=== PATIENT | male | born 1955 | race Caucasian/White ===

== ENCOUNTER 2021-09-08 12:48 | Outpatient (REF) | payer OTHER, SELFPAY ==
[2021-09-08 13:01] LABS: MANUAL DIFF FLAG NO
[2021-09-08 14:04] LABS: Basophils Absolute Auto 0.1 X10*3/uL (0.0-0.2); Basophils Percent Auto 0.7 % (0-2); Eosinophils Absolute Auto 0.2 X10*3/uL (0.0-0.4); Eosinophils Percent Auto 2.4 % (0-4); Hematocrit 38.7 % (42.0-52.0); Hemoglobin 11.9 g/dl (14.0-18.0); Imm Gran Abs Auto 0.02 X10*3/uL (0.00-0.03); Imm Gran Pct Auto 0.3 % (0.0-0.4); Lymphocytes Absolute Auto 1.6 X10*3/uL (1.2-4.9); Mean Corpuscular HGB Conc 30.7 g/dl (31.0-36.0); Mean Corpuscular Volume 78.2 fL (80.0-98.0); Mean Platelet Volume 10.4 fL (9.4-12.4); Monocytes Absolute Auto 0.8 X10*3/uL (0.1-1.2); Monocytes Percent Auto 10.8 % (2-11); Neutrophils Absolute Auto 4.5 x10*3/uL (2.0-8.3); Neutrophils Percent Auto 62.8 % (45-73); Platelet Count 275 X10*3/uL (160-400); Red Blood Count 4.95 X10*6/uL (4.60-5.80); Red Cell Distribution Width 16.9 % (11.0-16.0); White Blood Count 7.1 X10*3/uL (4.8-10.8)
[2021-09-08 14:33] LABS: Alanine Aminotransferase 17 U/L (0-40); Albumin Level 4.4 g/dL (3.5-5.0); Alkaline Phosphatase 60 U/L (39-117); Anion Gap 14 (12-20); Aspartate Amino Transferase 24 U/L (5-37); Bilirubin Total 0.7 mg/dL (0.0-1.0); Blood Urea Nitrogen 20 mg/dL (9-16); Calcium 9.4 mg/dL (8.4-10.2); Carbon Dioxide 28 mmol/L (22-29); Chloride 102 mmol/L (96-108); Estimated Glomerular Filt Rate > 60; Glucose Random 97 mg/dL (60-115); Potassium 5.3 mmol/L (3.3-5.1); Sodium 139 mmol/L (135-145); Total Protein 7.4 g/dL (6.5-8.0)
== END 2021-09-08 12:49 | disposition home or self-care (01) ==
LOC: HO.LAB 12:48
PROVIDERS: PCP Family Medicine; Visit Provider Family Medicine
DX: D72.819 Decreased white blood cell count, unspecified (principal); R53.81 Other malaise
CPT/HCPCS: 36415; 80053; 85025

== ENCOUNTER 2021-09-12 09:44 | Outpatient (REF) | payer OTHER, SELFPAY ==
[2021-09-12 10:02] LABS: MANUAL DIFF FLAG NO
[2021-09-12 10:13] LABS: Basophils Percent Auto 0.8 % (0-2); Eosinophils Absolute Auto 0.1 X10*3/uL (0.0-0.4); Eosinophils Percent Auto 2.4 % (0-4); Hematocrit 37.3 % (42.0-52.0); Hemoglobin 11.4 g/dl (14.0-18.0); Imm Gran Abs Auto 0.01 X10*3/uL (0.00-0.03); Imm Gran Pct Auto 0.3 % (0.0-0.4); Lymphocytes Absolute Auto 1.3 X10*3/uL (1.2-4.9); Lymphocytes Percent Auto 33.4 % (20-40); Mean Corpuscular HGB Conc 30.6 g/dl (31.0-36.0); Mean Corpuscular Hemoglobin 23.9 pg (27.0-33.0); Mean Corpuscular Volume 78.2 fL (80.0-98.0); Mean Platelet Volume 9.9 fL (9.4-12.4); Monocytes Absolute Auto 0.4 X10*3/uL (0.1-1.2); Monocytes Percent Auto 11.6 % (2-11); Neutrophils Percent Auto 51.5 % (45-73); Platelet Count 230 X10*3/uL (160-400); Red Blood Count 4.77 X10*6/uL (4.60-5.80); Red Cell Distribution Width 16.7 % (11.0-16.0); White Blood Count 3.8 X10*3/uL (4.8-10.8)
[2021-09-12 10:36] LABS: Iron 36 mcg/dL (45-160); Percent Iron Saturation 8 % (15-50); Total Iron Binding Capacity 442 mcg/dL (228-428); Unsaturated Iron Binding 406 ug/dL
[2021-09-12 10:56] LABS: Ferritin 7 ng/mL (20-250)
[2021-09-12 11:15] LABS: Folate 17.9 ng/mL (> or = 4.0); Vitamin B12 620 pg/mL (200-900)
== END 2021-09-12 09:45 | disposition home or self-care (01) ==
LOC: HO.LAB 09:44
PROVIDERS: PCP Family Medicine; Visit Provider Family Medicine
DX: D64.9 Anemia, unspecified (principal)
CPT/HCPCS: 36415; 82607; 82728; 82746; 83540; 85025

== ENCOUNTER 2022-07-19 08:02 | Outpatient (REF) | payer OTHER, SELFPAY ==
[2022-07-19 08:17] LABS: MANUAL DIFF FLAG NO
[2022-07-19 08:35] LABS: Basophils Percent Auto 0.8 % (0-2); Eosinophils Absolute Auto 0.1 X10*3/uL (0.0-0.4); Eosinophils Percent Auto 1.7 % (0-4); Hematocrit 44.7 % (42.0-52.0); Imm Gran Abs Auto 0.01 X10*3/uL (0.00-0.03); Imm Gran Pct Auto 0.2 % (0.0-0.4); Lymphocytes Absolute Auto 1.3 X10*3/uL (1.2-4.9); Lymphocytes Percent Auto 27.8 % (20-40); Mean Corpuscular HGB Conc 33.6 g/dl (31.0-36.0); Mean Corpuscular Hemoglobin 32.5 pg (27.0-33.0); Mean Corpuscular Volume 96.8 fL (80.0-98.0); Mean Platelet Volume 9.8 fL (9.4-12.4); Monocytes Absolute Auto 0.6 X10*3/uL (0.1-1.2); Monocytes Percent Auto 11.6 % (2-11); Neutrophils Absolute Auto 2.8 x10*3/uL (2.0-8.3); Neutrophils Percent Auto 57.9 % (45-73); Platelet Count 180 X10*3/uL (160-400); Red Blood Count 4.62 X10*6/uL (4.60-5.80); Red Cell Distribution Width 13.2 % (11.0-16.0); White Blood Count 4.8 X10*3/uL (4.8-10.8)
[2022-07-19 09:00] LABS: Alanine Aminotransferase 20 U/L (0-40); Albumin Level 4.2 g/dL (3.5-5.0); Alkaline Phosphatase 48 U/L (39-117); Anion Gap 13 (12-20); Aspartate Amino Transferase 26 U/L (5-37); Bilirubin Total 0.9 mg/dL (0.0-1.0); Blood Urea Nitrogen 16 mg/dL (9-16); Calcium 9.3 mg/dL (8.4-10.2); Carbon Dioxide 30 mmol/L (22-29); Chloride 102 mmol/L (96-108); Estimated Glomerular Filt Rate > 60; Glucose Random 95 mg/dL (60-115); Iron 124 mcg/dL (45-160); Percent Iron Saturation 36 % (15-50); Potassium 4.9 mmol/L (3.3-5.1); Sodium 140 mmol/L (135-145); Total Iron Binding Capacity 340 mcg/dL (228-428); Total Protein 6.8 g/dL (6.5-8.0); Unsaturated Iron Binding 216 ug/dL
[2022-07-19 09:25] LABS: Prostate Specific Antigen 0.36 ng/mL (<0.05-4.0); Thyroid Stimulating Hormone 1.61 uIU/mL (0.32-4.0)
== END 2022-07-19 08:03 | disposition home or self-care (01) ==
LOC: HO.LAB 08:02
PROVIDERS: PCP Family Medicine; Visit Provider Family Medicine
DX: Z12.5 Encounter for screening for malignant neoplasm of prostate (principal); D50.9 Iron deficiency anemia, unspecified
CPT/HCPCS: 36415; 80053; 83540; 84153; 84443; 85025

== ENCOUNTER 2023-08-30 10:31 | Outpatient (REF) | payer MEDICARE, OTHER, SELFPAY ==
[2023-08-30 13:25] LABS: MANUAL DIFF FLAG NO
[2023-08-30 13:45] LABS: Basophils Percent Auto 0.1 % (0-2); Eosinophils Percent Auto 0.2 % (0-4); Hematocrit 45.7 % (42.0-52.0); Hemoglobin 15.6 g/dl (14.0-18.0); Imm Gran Abs Auto 0.05 X10*3/uL (0.00-0.03); Imm Gran Pct Auto 0.5 % (0.0-0.4); Lymphocytes Absolute Auto 0.8 X10*3/uL (1.2-4.9); Lymphocytes Percent Auto 8.7 % (20-40); Mean Corpuscular HGB Conc 34.1 g/dl (31.0-36.0); Mean Corpuscular Hemoglobin 32.2 pg (27.0-33.0); Mean Corpuscular Volume 94.4 fL (80.0-98.0); Mean Platelet Volume 10.4 fL (9.4-12.4); Monocytes Absolute Auto 0.9 X10*3/uL (0.1-1.2); Monocytes Percent Auto 9.2 % (2-11); Neutrophils Absolute Auto 7.5 x10*3/uL (2.0-8.3); Neutrophils Percent Auto 81.3 % (45-73); Platelet Count 193 X10*3/uL (160-400); Red Blood Count 4.84 X10*6/uL (4.60-5.80); Red Cell Distribution Width 12.7 % (11.0-16.0); White Blood Count 9.3 X10*3/uL (4.8-10.8)
[2023-08-30 14:03] LABS: Iron 159 mcg/dL (45-160); Percent Iron Saturation 54 % (15-50); Total Iron Binding Capacity 293 mcg/dL (228-428); Unsaturated Iron Binding 134 ug/dL
== END 2023-08-30 10:32 | disposition home or self-care (01) ==
LOC: HO.10HDL 10:31
PROVIDERS: Visit Provider Family Medicine
DX: D50.8 Other iron deficiency anemias (principal)
CPT/HCPCS: 36415; 83540; 85025

== ENCOUNTER 2024-06-03 09:10 | Outpatient (AMB) | payer MEDICARE, OTHER, SELFPAY ==
--- NOTE | 2024-06-03 09:14 | MHC.OFFVIS ---
Vital Signs 06/03/24 09:15 Height 5 ft 6 in Weight 255 lb BMI 41.2 BP 139/71 Blood Pressure Location Lt brachial Position Sitting Respiration 14 Pulse 63 Pulse Source Pulse Oximeter Pulse Oximetry (%) 99 Oxygen Delivery Method Room Air Intake Visit Reasons: Bilateral shoulder pain- PRP Allergies No Known Allergies Allergy (Verified 06/03/24 09:16) Medication List - Last Reconciled 06/03/24 by Marisol Santana LPN acetaminophen (Tylenol Extra Strength) 1,000 mg PO Q6H PRN naproxen sodium (Aleve) 220 mg PO BID PRN HPI HPI Bilateral shoulder pain- PRP: Details: 68-year-old male who presents to the office to discuss bilateral shoulder PRP injections. Patient has a long standing history of shoulder issues and rotator cuff dysfunction over the last 25 to 30 years. He used to work as a chronic care nurse and had overuse injury to his right rotator cuff many years ago, for which he underwent rotator cuff surgery roughly 25 years ago. Since then, he has been managing this issue conservatively with the physical therapy. Recently, he started experiencing increasing pain after game of pickleball. Since then, he started going back for physical therapy and 3 rounds of corticosteroid injections at [facility], which were initially helpful, but the third injection did not seem provided any relief. He also seems to have aggravated his pain by engaging in some excessive weightlifting. At this time, his pain is rated as 5 to 7 out of 10 and is worst in the morning when he first wakes up. Movements make it worse and cold helps with the pain. He is unable to function normally. The pain localizes over the right and the left shoulder as well as across his upper back area. Currently, he is taking two Aleve and one of Tylenol as needed. He had received cortisone shots at [facility] to both shoulders about 3 months ago. He denies any numbness in the fingers or back. He has never received physical therapy for the neck. [facility] Medical History (Updated 06/03/24 @ 09:43 by Constantine Jones MD) Morbid obesity Review of Systems Const All systems reviewed & are unremarkable except as noted in HPI and below Physical Exam Vital Signs: Last Vital Signs Pulse 63 06/03/24 09:15 Resp 14 06/03/24 09:15 BP 139/71 06/03/24 09:15 Pulse Ox 99 06/03/24 09:15 Oxygen Delivery Method Room Air 06/03/24 09:15 BMI result Body Mass Index 41.2 General: Appears afebrile. Alert and oriented. Mood and affect appropriate. Follows and participates in conversation appropriately. Respiratory effort is unlabored. Able to transition from sit to stand unassisted. Shoulder range of motion is preserved, but painful above the level of the head. Flexion reproduces pain along the lateral aspect of the shoulder. Palpation of the right bicipital tendon does not reproduce tenderness. Results Reviewed Results Reviewed: Exam: MR Shoulder - Right [facility] Clinical History: Biceps pain status post injury. History of rotator cuff repair 2009. Technique: MRI of the right shoulder was performed without intravenous contrast. Comparison: None. Findings: Postsurgical change at the AC joint Supraspinatus and infraspinatus tendons are intact. Teres minor tendon is intact. Subscapularis tendon is intact. Long head of the biceps tendon is either torn and retracted or has undergone previous tenotomy or tenodesis. Truncated superior labrum related to the aforementioned biceps. Intermediate T2 signal within a thickened inferior glenohumeral ligament. Mild glenohumeral osteoarthritis with small osteophytes. IMPRESSION: No evidence of rotator cuff tear. Long head of the biceps tendon is either torn and retracted or has undergone previous tenotomy or tenodesis. Correlate clinically. Truncated superior labrum likely related to biceps pathology. Intermediate T2 signal within a thickened inferior glenohumeral ligament. Finding can be seen with synovitis and adhesive capsulitis. Mild glenohumeral osteoarthritis with small osteophytes. Exam: MR Shoulder - Left Room Description: [facility] 1.5 Clinical History: Lateral shoulder pain. Technique: MRI of the left shoulder was performed without intravenous contrast. Comparison: None. Findings: Mild acromioclavicular osteoarthritis Supraspinatus and infraspinatus tendinopathy. Small, low and intermediate grade partial articular and intrasubstance tears within footprint fibers of the supraspinatus tendon. Teres minor tendon is intact. Subscapularis tendon is intact with mild distal subscapularis tendinopathy Partial tearing and tendinopathy within the long head of the biceps tendon IMPRESSION: Supraspinatus, infraspinatus and subscapularis tendinopathy. Superimposed partial supraspinatus tears are outlined above Partial tearing and tendinopathy within the long head of the biceps tendon Assessment & Plan Assessment & Plan (1) Cervical radiculopathy: Code(s): M54.12 - Radiculopathy, cervical region Category: Medical (2) Bilateral rotator cuff dysfunction: Code(s): M67.911 - Unspecified disorder of synovium and tendon, right shoulder; M67.912 - Unspecified disorder of synovium and tendon, left shoulder Category: Medical Plan We will schedule for a right shoulder rotator cuff PRP injection. Counseled him to avoid Aleve 2 weeks before prior to the injection and 2 weeks after the injection. Discussed the risks and benefits of the procedure with the patient in detail. All questions were answered. The patient is on board with the plan. Also provided the patient with a script for physical therapy for cervical radicular symptoms radiating into his upper back and shoulders. Scribed for Dr. Jones by Pauline Thomas medical laboratory technical officer, on 06/03/2024. I, Dr. Jones, have personally reviewed and agree with the information entered by the scribe. Orders: Orders PT Evaluation and Treatment Today M54.12 - Radiculopathy, cervical region Coding Level of Care Code New Pt Level 4 (83791) Diagnoses Cervical radiculopathy M54.12 Bilateral rotator cuff dysfunction M67.911; M67.912
[2024-06-03 09:15] VITALS: BP 139/71; PULSE 63; RESP 14; O2SAT 99; BMI 41.2
== END 2024-06-03 10:49 | disposition home or self-care (01) ==
PROVIDERS: PCP Family Medicine; Visit Provider Internal Medicine
DX: M54.12 Radiculopathy, cervical region (principal); M67.911 Unspecified disorder of synovium and tendon, right shoulder; M67.912 Unspecified disorder of synovium and tendon, left shoulder
CPT/HCPCS: 99204

== ENCOUNTER → 2024-06-03 09:10 | Outpatient (BNVA) | payer MEDICARE, OTHER, SELFPAY | PROVIDERS: PCP Family Medicine; Visit Provider Internal Medicine | DX: M67.911 Unspecified disorder of synovium and tendon, right shoulder (principal); M67.912 Unspecified disorder of synovium and tendon, left shoulder; M54.12 Radiculopathy, cervical region | CPT/HCPCS: 99202 ==

== ENCOUNTER 2024-06-11 06:09 | Outpatient (REF) | payer MEDICARE, OTHER, SELFPAY | END 2024-06-11 06:10 | disposition home or self-care (01) | LOC: CF 06:09 | PROVIDERS: Visit Provider Internal Medicine | DX: Z13.89 Encounter for screening for other disorder (principal) ==

== ENCOUNTER 2024-06-11 08:12 | Outpatient (AMB) | payer SELFPAY ==
[2024-06-11 08:40] VITALS: BP 123/70; PULSE 61; RESP 17; O2SAT 100
--- NOTE | 2024-06-11 10:03 | MHC.OFFVIS ---
Vital Signs 06/11/24 08:40 06/11/24 10:04 BP 123/70 167/93 H Blood Pressure Location Lt brachial Lt brachial Position Sitting Sitting Respiration 17 16 Pulse 61 52 Pulse Source Pulse Oximeter Pulse Oximeter Pulse Oximetry (%) 100 99 Oxygen Delivery Method Room Air Room Air Comment Pre-op Post-op Intake Visit Reasons: BILATERAL rotator cuff PRP Allergies No Known Allergies Allergy (Verified 06/03/24 09:16) HPI HPI BILATERAL rotator cuff PRP: Details: Patient presents for scheduled procedure. Denies any recent cough, cold, infection, fever or other significant changes in medical history since last office visit. [facility] Medical History (Updated 06/03/24 @ 09:43 by Constantine Jones MD) Morbid obesity Physical Exam Vital Signs: Last Vital Signs Pulse 52 06/11/24 10:04 Resp 16 06/11/24 10:04 BP 167/93 H 06/11/24 10:04 Pulse Ox 99 06/11/24 10:04 Oxygen Delivery Method Room Air 06/11/24 10:04 Office Procedures Platelet Rich Plasma Injection PRP Joint Injection After informed written consent was obtained, pre-procedure oxygen saturation, heart rate, and blood pressure were recorded. An 18 gauge butterfly needle was used to obtain 102 mL of whole blood from the right antecubital fossa in 2 syringes, prefilled with 9 mL anticoagulant citrate dextrose solution for 60 mL total in each syringe. The 60 mL mixtures were counter balanced to within 1 g and spun at 3500 rpm for 11 minutes. Platelet poor plasma was then drawn using a bench top press model. 6 mL of slightly leukocyte rich PRP was isolated from each of the two mixtures in to 2 syringes. The PRP was injected into each of the 2 shoulders, targeting the supraspinatus tendon, infraspinatus tendon and the subacromial region. Images of the ultrasound guided injections were saved to the patient's permanent record. Primary Site: right shoulder Secondary Site: left shoulder Prep: site was prepped using sterile technique Approach Used: posterolateral (under US guidance) Procedure: The patient tolerated the procedure well XCELL Platelet Plasma - 0232T 120 mL All charges added?: Procedure code (CPT) selection complete Assessment & Plan Assessment & Plan (1) Bilateral rotator cuff dysfunction: Code(s): M67.911 - Unspecified disorder of synovium and tendon, right shoulder; M67.912 - Unspecified disorder of synovium and tendon, left shoulder Category: Medical Plan Patient is status post bilateral rotator cuff PRP injections under ultrasound guidance using 120 mL kits/volume. Patient tolerated procedure well and was discharged home in stable condition with discharge instructions. All questions were answered. Follow-up in 2 months to assess response. Orders: Orders AMB Platelet Rich Plasma (PRP) Injection Today Louann West APRN, KOSHER BUTCHER M67.911 - Unspecified disorder of synovium and tendon, right shoulder, M67.912 - Unspecified disorder of synovium and tendon, left shoulder US guide needle placement Today Louann West APRN, KOSHER BUTCHER M67.911 - Unspecified disorder of synovium and tendon, right shoulder, M67.912 - Unspecified disorder of synovium and tendon, left shoulder Medications: New tramadol 50 mg PO BID PRN 20 tabs 0RF pain Constantine Jones MD Coding Level of Care Code Procedure Only Diagnoses Bilateral rotator cuff dysfunction M67.911; M67.912 CPT Codes XCELL Kit 120mL ([id number])
[2024-06-11 10:04] VITALS: BP 167/93; PULSE 52; RESP 16; O2SAT 99
== END 2024-06-11 09:38 | disposition home or self-care (01) ==
PROVIDERS: PCP Family Medicine; Visit Provider Internal Medicine
DX: M67.911 Unspecified disorder of synovium and tendon, right shoulder (principal); M67.912 Unspecified disorder of synovium and tendon, left shoulder
CPT/HCPCS: 0232T

== ENCOUNTER 2024-08-21 08:54 | Outpatient (AMB) | payer MEDICARE, OTHER, SELFPAY ==
--- NOTE | 2024-08-21 09:02 | MHC.OFFVIS ---
Vital Signs 08/21/24 09:03 Height 5 ft 6 in Weight 263 lb BMI 42.4 BP 140/65 H Blood Pressure Location Lt brachial Position Sitting Respiration 16 Pulse 69 Pulse Source Pulse Oximeter Pulse Oximetry (%) 97 Oxygen Delivery Method Room Air Intake Visit Reasons: s/p PRP right rotator cuff Allergies No Known Allergies Allergy (Verified 08/21/24 09:04) Medication List - Last Reconciled 08/21/24 by Marisol Santana LPN acetaminophen (Tylenol Extra Strength) 1,000 mg PO Q6H PRN naproxen sodium (Aleve) 220 mg PO BID PRN tramadol 50 mg PO BID PRN HPI HPI s/p PRP right rotator cuff: Details: 68-year-old male who presents today to the office for status post right rotator cuff PRP injection. The patient reports mild relief following the procedure. He states that his pain has been gradually coming back and worsening for the past 30 days. His right side is worse and bothersome compared to the left side. He deferred getting additional steroids or drug injections for pain relief. He noticed losing strength in his hands while trying to squeeze the aerosol bottle. He denies dropping things from his hands. He also has some neck and shoulder pain.?His pain is worse in the morning and has difficulty sleeping at night. He is currently using [employer] insurance and will change his insurance to [employer] at the end of the month. Past procedures 06/11/24: PRP Joint Injection: Mild relief. [facility] Medical History (Updated 06/03/24 @ 09:43 by Constantine Jones MD) Morbid obesity Review of Systems Const All systems reviewed & are unremarkable except as noted in HPI and below Physical Exam Vital Signs: Last Vital Signs Pulse 69 08/21/24 09:03 Resp 16 08/21/24 09:03 BP 140/65 H 08/21/24 09:03 Pulse Ox 97 08/21/24 09:03 Oxygen Delivery Method Room Air 08/21/24 09:03 BMI result Body Mass Index 42.4 General: Appears afebrile. Alert and oriented. Mood and affect appropriate. Follows and participates in conversation appropriately. Respiratory effort is unlabored. Able to transition from sit to stand unassisted. Ambulates with bilaterally normal heel strike and toe off. Right shoulder ROM severely limited. Painful arc. Results Reviewed Results Reviewed: No imaging is available for review. Assessment & Plan Assessment & Plan (1) Bilateral rotator cuff dysfunction: Code(s): M67.911 - Unspecified disorder of synovium and tendon, right shoulder; M67.912 - Unspecified disorder of synovium and tendon, left shoulder Category: Medical Plan Discussed repeating PRP injections vs. cortisone injections vs. temporary peripheral nerve stimulator as possible treatment options. We will proceed with right suprascapular peripheral nerve stimulator for intractable right shoulder pain not responsive to PT and injection. He may consider a future PRP injection to the right biceps along the tendon. For the left rotator cuff we will repeat PRP joint injection given good response to the last injection. We will initiate the PA for the peripheral nerve stimulator with [employer] which is his insurance starting September 04. Discussed the risks and benefits of the procedure with the patient in detail. All questions were answered. The patient is on board with the plan. Justification for interventional therapy: ? Patient with average pain > 6/10 ? Patient has exhausted conservative therapy ? Patient unable to tolerate physical therapy due to pain. . Patient has a good understanding of their pain condition and has appropriate mental and social support Scribed for Dr. Jones by Chacorta Pierson, medical administrator, on 08/21/2024. I, Dr. Jones, have personally reviewed and agree with the information entered by the scribe. Medications: New celecoxib (Celebrex) 200 mg PO BID 60 caps 0RF Coding Level of Care Code Est Pt Level 4 (54879) Diagnoses Bilateral rotator cuff dysfunction M67.911; M67.912
[2024-08-21 09:03] VITALS: BP 140/65; PULSE 69; RESP 16; O2SAT 97; BMI 42.4
== END 2024-08-21 09:29 | disposition home or self-care (01) ==
PROVIDERS: PCP Family Medicine; Visit Provider Internal Medicine
DX: M67.911 Unspecified disorder of synovium and tendon, right shoulder (principal); M67.912 Unspecified disorder of synovium and tendon, left shoulder
CPT/HCPCS: 99214

== ENCOUNTER → 2024-08-21 08:54 | Outpatient (BNVA) | payer MEDICARE, OTHER, SELFPAY | PROVIDERS: PCP Family Medicine; Visit Provider Internal Medicine | DX: M65.911 Unspecified synovitis and tenosynovitis, right shoulder (principal); M65.912 Unspecified synovitis and tenosynovitis, left shoulder | CPT/HCPCS: 99212 ==

== ENCOUNTER 2024-09-03 06:09 | Outpatient (REF) | payer MEDICARE, OTHER, SELFPAY | END 2024-09-03 06:10 | disposition home or self-care (01) | LOC: CF 06:09 | PROVIDERS: Visit Provider Internal Medicine | DX: Z13.89 Encounter for screening for other disorder (principal) ==

== ENCOUNTER 2024-09-03 09:05 | Outpatient (AMB) | payer MEDICARE, OTHER, SELFPAY ==
--- NOTE | 2024-09-03 09:14 | A.OFFVIS_ITS ---
Vital Signs 09/03/24 09:15 09/03/24 10:17 BP 136/71 135/79 Blood Pressure Location Rt brachial Rt brachial Position Sitting Sitting Pulse 60 58 Pulse Source Pulse Oximeter Pulse Oximeter Pulse Oximetry (%) 97 99 Oxygen Delivery Method Room Air Room Air Intake Visit Reasons: PRP left rotator cuff Allergies No Known Allergies Allergy (Verified 08/21/24 09:04) [facility] Medical History (Updated 06/03/24 @ 09:43 by Constantine Jones MD) Morbid obesity Physical Exam Vital Signs: Last Vital Signs Pulse 58 09/03/24 10:17 BP 135/79 09/03/24 10:17 Pulse Ox 99 09/03/24 10:17 Oxygen Delivery Method Room Air 09/03/24 10:17 Office Procedures Platelet Rich Plasma Injection PRP Joint Injection PRP Joint Injection After informed written consent was obtained, pre-procedure oxygen saturation, heart rate, and blood pressure were recorded. An 18 gauge butterfly needle was used to obtain 51 mL of whole blood from the right antecubital fossa PNS syringe prefilled with 9 mL anticoagulant citrate dextrose solution for 60 mL total. The 60 mL mixture was counter balanced to within 1 g and spun at 3500 rpm for 11 minutes. Platelet poor plasma was then drawn using a bench top press model. 6-7 mL of slightly leukocyte rich PRP was isolated into one 10 mL syringe. 2-3 mL of the PRP was injected around the long head of the left biceps tendon and 3-4 mL was deposited in the subacromial region along the supraspinatus tendon. Images of the ultrasound guided injections were saved to the patient's permanent record. Primary Site: left shoulder Prep: site was prepped using sterile technique Approach Used: other (Ultrasound-guided) Procedure: The patient tolerated the procedure well XCELL Platelet Plasma - 0232T 60 mL All charges added?: Procedure code (CPT) selection complete Assessment & Plan Assessment & Plan (1) Bilateral rotator cuff dysfunction: Code(s): M67.911 - Unspecified disorder of synovium and tendon, right shoulder; M67.912 - Unspecified disorder of synovium and tendon, left shoulder Category: Medical Plan Patient is status post left biceps tendon and supraspinatus tendon PRP injection under ultrasound guidance. Patient tolerated procedure well and was discharged home in stable condition with discharge instructions. All questions were answered. We will follow-up via telephone or in clinic to assess response to therapy. A follow-up appointment was made during today's visit. Orders: Orders AMB Platelet Rich Plasma (PRP) Injection Today M67.911 - Unspecified disorder of synovium and tendon, right shoulder, M67.912 - Unspecified disorder of synovium and tendon, left shoulder Coding Level of Care Code Procedure Only Diagnoses Bilateral rotator cuff dysfunction M67.911; M67.912 CPT Codes XCELL Kit 60mL ([id number])
[2024-09-03 09:15] VITALS: BP 136/71; PULSE 60; O2SAT 97
[2024-09-03 10:17] VITALS: BP 135/79; PULSE 58; O2SAT 99
== END 2024-09-03 10:19 | disposition home or self-care (01) ==
LOC: HO.PMCPRC 09:05
PROVIDERS: PCP Family Medicine; Visit Provider Internal Medicine
DX: M67.911 Unspecified disorder of synovium and tendon, right shoulder (principal); M67.912 Unspecified disorder of synovium and tendon, left shoulder
CPT/HCPCS: 0232T

== ENCOUNTER 2024-09-24 07:59 | Outpatient (REF) | payer MEDICARE, SELFPAY | END 2024-09-24 08:00 | disposition home or self-care (01) | LOC: CF 07:59 | PROVIDERS: Visit Provider Internal Medicine | DX: M67.911 Unspecified disorder of synovium and tendon, right shoulder (principal); M67.912 Unspecified disorder of synovium and tendon, left shoulder; M25.511 Pain in right shoulder; M25.512 Pain in left shoulder; G89.29 Other chronic pain | CPT/HCPCS: 64555; C1778; J2003 ==

== ENCOUNTER 2024-09-24 09:11 | Outpatient (AMB) | payer MEDICARE, SELFPAY ==
[2024-09-24 09:22] VITALS: BP 119/67; PULSE 58; O2SAT 98
--- NOTE | 2024-09-24 09:22 | MHC.OFFVIS ---
Vital Signs 09/24/24 09:22 09/24/24 10:13 BP 119/67 Blood Pressure Location Lt brachial Position Sitting Pulse 58 58 Pulse Source Pulse Oximeter Pulse Oximeter Pulse Oximetry (%) 98 98 Oxygen Delivery Method Room Air Room Air Intake Visit Reasons: right suprascapular Sprint Allergies No Known Allergies Allergy (Verified 08/21/24 09:04) HPI HPI right suprascapular Sprint: Details: Patient presents for scheduled procedure. Denies any recent cough, cold, infection, fever or other significant changes in medical history since last office visit. [facility] Medical History (Updated 09/24/24 @ 13:02 by Constantine Jones MD) Morbid obesity Physical Exam Vital Signs: Last Vital Signs Pulse 58 09/24/24 10:13 BP 119/67 09/24/24 09:22 Pulse Ox 98 09/24/24 10:13 Oxygen Delivery Method Room Air 09/24/24 10:13 Office Procedures Details: Peripheral Nerve Stimulation Temporary Lead Placement, Ultrasound-Guided, Suprascapular Nerve, Right ? After the risks, benefits and alternatives were discussed with the patient and informed consent was obtained, patient was placed in the sitting position and padded to foster comfort. Appropriate skin and bony landmarks were identified using ultrasound, including the right suprascapular notch. The skin overlying the needle entry site was prepped and draped in sterile fashion. After identifying and marking the intended target along the course of the suprascapular nerve, the skin around the planned entry point and the subcutaneous tissues were injected with local anesthetic. An introducer needle and stimulating probe were assembled, inserted and advanced along the intended course of the suprascapular nerve, taking care to maintain the proper depth of insertion as the introducer was advanced under ultrasound guidance. Bony contact was achieved with the scapula and maintained throughout. The introducer needle was delivered to a location in proximity to the nerve. Multiple stimulation parameters were used to deliver stimulation to the suprascapular nerve in concert with stimulating at multiple positions around the nerve. Nerve target acquisition was confirmed noting generation of sensory and mild motor effects (paresthesia, muscle tension, etc) in the shoulder and proximal arm; corresponding to the distribution of the suprascapular nerve. Various electrical parameter combinations were tested, and the lead location was adjusted (physically relocated under image guidance) until the patient indicated shoulder paresthesia and tension overlapping the distribution of the patient?s typical region of pain. The stimulating probe was removed from the introducer and a percutaneous lead was guided through the needle and delivered to a location in similar proximity to the nerve. Final location was verified with electrical stimulation and documented. The introducer needle was removed, and the exposed end of the percutaneous lead was attached to an external stimulator unit. Various electrical parameter combinations were again tested until the patient indicated paresthesia and muscle tension overlapping the distribution of the patient?s typical region of pain. After confirming that lead impedance was in the normal range, the external unit was detached, the needle was removed, and the lead was anchored at the skin. The needle entry site was occluded with dermabond. The lead was threaded into the connector block and electrical continuity and desired patient response was confirmed. The connector block was attached to the external stimulator unit. The site was covered with a sterile occlusive dressing.? A final image was taken to document final placement. The patient was observed for stability of vital signs and comfort. Sprint PNS Device: Sprint PNS Device [id number] Percutaneous Peripheral Neuroelectrode Procedure: 25807 - Percutaneous Peripheral Neuroelectrode Procedure code (CPT) selection complete Office Meds lidocaine HCl 10 mg/mL (1 %) injection solution Performing Provider: Louann West APRN, [facility] Performing Location: [facility] Administered by: Marisol Santana LPN on 09/24/24 09:51 Dose Route Admin Location Dispensed Lot Number Expiration Date NDC Criminalist Technician 5 mL subcut 5 mL Assessment & Plan Assessment & Plan (1) Bilateral rotator cuff dysfunction: Code(s): M67.911 - Unspecified disorder of synovium and tendon, right shoulder; M67.912 - Unspecified disorder of synovium and tendon, left shoulder Category: Medical (2) Chronic shoulder pain: Code(s): M25.519 - Pain in unspecified shoulder; G89.29 - Other chronic pain Category: Medical Plan Patient is status post temporary right suprascapular nerve stimulator placement. Patient tolerated procedure well and was discharged home in stable condition with discharge instructions. All questions were answered. We will follow-up via telephone or in clinic to assess response to therapy. A follow-up appointment was made during today's visit. Orders: Orders [place] guidance in treatment room Today M67.911 - Unspecified disorder of synovium and tendon, right shoulder, M67.912 - Unspecified disorder of synovium and tendon, left shoulder AMB Sprint PNS Today M67.911 - Unspecified disorder of synovium and tendon, right shoulder, M67.912 - Unspecified disorder of synovium and tendon, left shoulder Coding Level of Care Code Procedure Only Diagnoses Bilateral rotator cuff dysfunction M67.911; M67.912 Chronic shoulder pain M25.519; G89.29 CPT Codes Sprint PNS - Sprint PNS Device: Sprint PNS Device ([id number]) Sprint PNS - SPRINT: 62581 - Percutaneous Peripheral Neuroelectrode ([id number]) Implantable Device Implantable Device Implantable Devices Qty Criminalist Technician Implant Date Expiration Date Analgesic PENS system 1 [employer] 09/24/24 10/07/25
[2024-09-24 10:13] VITALS: PULSE 58; O2SAT 98
== END 2024-09-24 10:29 | disposition home or self-care (01) ==
LOC: HO.PMCPRC 09:11
PROVIDERS: PCP Family Medicine; Visit Provider Internal Medicine
DX: M67.911 Unspecified disorder of synovium and tendon, right shoulder (principal)
CPT/HCPCS: 64555

== ENCOUNTER 2024-09-28 08:52 | Outpatient (AMB) | payer MEDICARE, SELFPAY ==
--- NOTE | 2024-09-28 08:53 | A.OFFVIS_ITS ---
Vital Signs 09/28/24 08:54 Height 5 ft 6 in Weight 250 lb BMI 40.3 BP 122/67 Blood Pressure Location Lt brachial Position Sitting Respiration 15 Pulse 64 Pulse Source Pulse Oximeter Pulse Oximetry (%) 97 Oxygen Delivery Method Room Air Intake Visit Reasons: s/p right suprascapular Sprint Allergies No Known Allergies Allergy (Verified 09/28/24 08:56) Medication List - Last Reconciled 09/28/24 by Marisol Santana LPN acetaminophen (Tylenol Extra Strength) 1,000 mg PO Q6H PRN celecoxib (Celebrex) 200 mg PO BID naproxen sodium (Aleve) 220 mg PO BID PRN tramadol 50 mg PO BID PRN HPI HPI s/p right suprascapular Sprint: Details: 69-year-old male who presents today to the office for a status post right suprascapular sprint. He has about 80% relief on the left side following the PRP injection and 80% relief on the right side following the sprint placement. Past procedures 09/27/24: Peripheral Nerve Stimulation Temporary Lead Placement, Ultrasound- Guided, Suprascapular Nerve, Right: % relief. 09/03/24: Platelet Rich Plasma Injection: % relief. 06/11/24: PRP Joint Injection: Mild relief. [facility] Medical History (Updated 09/24/24 @ 13:02 by Constantine Jones MD) Morbid obesity Review of Systems Const All systems reviewed & are unremarkable except as noted in HPI and below Physical Exam Vital Signs: Last Vital Signs Pulse 64 09/28/24 08:54 Resp 15 09/28/24 08:54 BP 122/67 09/28/24 08:54 Pulse Ox 97 09/28/24 08:54 Oxygen Delivery Method Room Air 09/28/24 08:54 BMI result Body Mass Index 40.3 General: Appears afebrile. Alert and oriented. Mood and affect appropriate. Follows and participates in conversation appropriately. Respiratory effort is unlabored. Able to transition from sit to stand unassisted. Ambulates with bilaterally normal heel strike and toe off. Lead insertion site was clean, dry, and intact. Results Reviewed Results Reviewed: No imaging is available for review. Assessment & Plan Assessment & Plan (1) Chronic shoulder pain: Code(s): M25.519 - Pain in unspecified shoulder; G89.29 - Other chronic pain Category: Medical (2) Bilateral rotator cuff dysfunction: Code(s): M67.911 - Unspecified disorder of synovium and tendon, right shoulder; M67.912 - Unspecified disorder of synovium and tendon, left shoulder Category: Medical Plan He is very happy with the initial results. We will continue therapy as planned. He will be in [place] at the time of the lead removal. He will be in touch with [facility] team to arrange provider for lead removal. He expressed understanding and is in agreement with the plan. Scribed for Dr. Jones by Chacorta Pierson, senior medical transcriptionist, on 09/28/2024. I, Dr. Jones, have personally reviewed and agree with the information entered by the scribe. Coding Level of Care Code Est Pt Level 3 (13761) Diagnoses Chronic shoulder pain M25.519; G89.29 Bilateral rotator cuff dysfunction M67.911; M67.912
[2024-09-28 08:54] VITALS: BP 122/67; PULSE 64; RESP 15; O2SAT 97; BMI 40.3
== END 2024-09-28 09:33 | disposition home or self-care (01) ==
PROVIDERS: PCP Family Medicine; Visit Provider Internal Medicine
DX: M25.519 Pain in unspecified shoulder (principal); G89.29 Other chronic pain; M67.911 Unspecified disorder of synovium and tendon, right shoulder; M67.912 Unspecified disorder of synovium and tendon, left shoulder
CPT/HCPCS: 99024

== ENCOUNTER → 2024-09-28 08:52 | Outpatient (BNVA) | payer MEDICARE, SELFPAY | PROVIDERS: PCP Family Medicine; Visit Provider Internal Medicine | DX: M67.911 Unspecified disorder of synovium and tendon, right shoulder (principal); M67.912 Unspecified disorder of synovium and tendon, left shoulder; M25.519 Pain in unspecified shoulder; G89.29 Other chronic pain | CPT/HCPCS: 99212 ==

== ENCOUNTER 2024-10-30 09:15 | Outpatient (AMB) | payer MEDICARE, SELFPAY ==
--- NOTE | 2024-10-30 09:28 | MHC.OFFVIS ---
Vital Signs 10/30/24 09:30 Height 5 ft 6 in Weight 250 lb BMI 40.3 BP 143/80 H Blood Pressure Location Lt brachial Position Sitting Respiration 15 Pulse 63 Pulse Source Pulse Oximeter Pulse Oximetry (%) 98 Oxygen Delivery Method Room Air Intake Visit Reasons: s/p PRP left rotator cuff Allergies No Known Allergies Allergy (Verified 10/30/24 09:31) Medication List - Last Reconciled 10/30/24 by Marisol Santana LPN acetaminophen (Tylenol Extra Strength) 1,000 mg PO Q6H PRN celecoxib (Celebrex) 200 mg PO BID naproxen sodium (Aleve) 220 mg PO BID PRN tramadol 50 mg PO BID PRN HPI HPI s/p PRP left rotator cuff: Details: 69-year-old male who presents today to the office for a status post left shoulder PRP injections. He has been feeling appropriate sensations from the device in his bilateral shoulder and neck region. He states that he titrated the device setting from 60 to 62, 64, 67, and then 69 and then weaned down to 60 on . He occasionally feels some soreness in the mid-neck region. He is able to sleep without any pain. He is traveling to [place]. He had difficulty reaching out to the [facility] team in [place] for lead removal that is scheduled in the first week of December 2024. He will reach out to [facility] on 11/02/24. Past procedures 09/27/24: Peripheral Nerve Stimulation Temporary Lead Placement, Ultrasound-Guided, Suprascapular Nerve, Right: % relief. 09/03/24: Platelet Rich Plasma Injection: % relief. 06/11/24: PRP Joint Injection: Mild relief. [facility] Medical History (Updated 09/24/24 @ 13:02 by Constantine Jones MD) Morbid obesity Review of Systems Const All systems reviewed & are unremarkable except as noted in HPI and below Physical Exam Vital Signs: Last Vital Signs Pulse 63 10/30/24 09:30 Resp 15 10/30/24 09:30 BP 143/80 H 10/30/24 09:30 Pulse Ox 98 10/30/24 09:30 Oxygen Delivery Method Room Air 10/30/24 09:30 BMI result Body Mass Index 40.3 General: Appears afebrile. Alert and oriented. Mood and affect appropriate. Follows and participates in conversation appropriately. Respiratory effort is unlabored. Able to transition from sit to stand unassisted. Ambulates with bilaterally normal heel strike and toe off. Results Reviewed Results Reviewed: No imaging is available for review. Assessment & Plan Assessment & Plan (1) Chronic shoulder pain: Code(s): M25.519 - Pain in unspecified shoulder; G89.29 - Other chronic pain Category: Medical Plan He will continue the temporary PNS therapy as directed. He is traveling to [place], so we will try to setup the lead removal in [place]. Scribed for Dr. Jones by Chacorta Pierson, medical technologist chemistry, on 10/30/2024. I, Dr. Jones, have personally reviewed and agree with the information entered by the scribe. Coding Level of Care Code Est Pt Level 3 (23269) Diagnoses Chronic shoulder pain M25.519; G89.29
[2024-10-30 09:30] VITALS: BP 143/80; PULSE 63; RESP 15; O2SAT 98; BMI 40.3
== END 2024-10-30 10:17 | disposition home or self-care (01) ==
PROVIDERS: PCP Family Medicine; Visit Provider Internal Medicine
DX: M25.519 Pain in unspecified shoulder (principal); G89.29 Other chronic pain
CPT/HCPCS: 99213

== ENCOUNTER → 2024-10-30 09:15 | Outpatient (BNVA) | payer MEDICARE, SELFPAY | PROVIDERS: PCP Family Medicine; Visit Provider Internal Medicine | DX: M25.512 Pain in left shoulder (principal); G89.29 Other chronic pain | CPT/HCPCS: 99212 ==

== ENCOUNTER 2025-03-22 11:39 | Outpatient (AMB) | payer MEDICARE, SELFPAY ==
--- NOTE | 2025-03-22 11:43 | A.OFFVIS_ITS ---
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 The issue originated from carrying an intoxicated individual, increasing stress on the patient's left shoulder. Previously administered treatments, notably PRP injections, offered significant symptomatic relief. Targeting of the biceps tendon successfully mitigated pain, evidenced by pain-free physical activities like playing pickleball. The absence of consistent NSAID usage and reliance on conservative management corroborates his treatment history, with remarkable symptomatic improvement noted pre-and post-exertion activities despite recent exacerbation. Pain Description - Onset and Timing: Pain reactivated after physical exertion. - Quality and Character: Notable discomfort in the left shoulder, primarily around the biceps tendon and supraspinatus tendon. - Primary Location: Left shoulder. - Radiation: No specific details provided. - Exacerbating Factors: Physical exertion, notably carrying weight on the shoulder. - Relieving Factors: Previous PRP therapy provided significant relief. - Interference: Activities such as carrying weight have increased discomfort while past activities like pickleball were pain-free after treatment. Physical Exam - Appears afebrile. - Alert and oriented. - Mood and affect appropriate. - Follows and participates in conversation appropriately. - Respiratory effort is unlabored. - Limited left shoulder ROM Pain Management - Affect: No mention of mood impact from pain. - Analgesia: PRP therapy previously effective with goal to re-administer. - Adverse Effects: No reported side effects from current/prior treatments. - Activities of Daily Living: Pain interfered during carrying tasks; goal to regain full, pain-free mobility. - Aberrant Drug Related Behaviors: No suspicious medication use reported. [facility] Medical History (Updated 09/24/24 @ 13:02 by Constantine Jones MD) Morbid obesity Physical Exam Vital Signs: Last Vital Signs Pulse 55 03/22/25 11:45 Resp 16 03/22/25 11:45 BP 135/77 03/22/25 11:45 Pulse Ox 99 03/22/25 11:45 Oxygen Delivery Method Room Air 03/22/25 11:45 BMI result Body Mass Index 40.5 Assessment & Plan Assessment & Plan (1) Chronic shoulder pain: Code(s): M25.519 - Pain in unspecified shoulder; G89.29 - Other chronic pain Category: Medical Plan Plan - Arrange for left-sided PRP injection targeting the biceps tendon and supraspinatus tendon as before due to previous efficacy. - Discussed procedure details, risks, and benefits based on prior effective pain management strategies. - Assure to monitor for complications, emphasizing patient understanding of follow-up care and manage lifestyle modifications to avoid exacerbating actions. Patient was informed and verbally consented to the use of an ambient scribe for clinic note documentation during this visit. Discussion Notes We reviewed the patient's previous successful response to PRP therapy, particularly targeting the left shoulder's biceps and supraspinatus tendons. I explained the procedure's risks, benefits, and goals to alleviate reactivated pain following recent exertion. The patient expressed an understanding of the intervention and expressed willingness to proceed with another session, given prior positive outcomes. Monitoring and adverse behavior evaluations regarding medication usage were reassured as part of post-treatment assessments. Patient Instructions - Schedule PRP injection for left shoulder targeting biceps tendon and supraspinatus tendon. - Avoid intensive shoulder activities or carrying heavy objects until post- procedural relief confirmation. - Follow-up with any unusual symptoms or exacerbation of pain. - Maintain regular follow-up visits and report any unforeseen side effects from treatment interventions. Coding Level of Care Code Est Pt Level 3 (64806) Diagnoses Chronic shoulder pain M25.519; G89.29
[2025-03-22 11:45] VITALS: BP 135/77; PULSE 55; RESP 16; O2SAT 99; BMI 40.5
--- OUTSIDE RECORDS SUMMARY | 2025-03-22 12:26 | XMS_ITS | Data Portability ---
Author Organization [place] [facility] Address [address] [address] Care Team Providers Care Statement Request Clerk Name Role Phone MESHA FUNES Primary Care Provider Assessment Encounter Date Assessment Date Assessment LastModified by Organization Details LastModified Time 11/13/2024 11/13/2024 Dylan Orellana MD patient 1. Mr. Morton is a very pleasant patient with PMH of BPH. Patient is presenting with RT shoulder pain. Patient states having a PNS on the RT shoulder on the 2023 back in [place]. Patient will f/u for a 1 month for lead pull. Onset of Pain Approximate Date: (Month/Year) - Current Pain Level: 2/10 Worst pain level: 10/10 2. Pain Generators/ Etiology Shoulder sub-acromial impingement 3. Previously trialed/Failed Meds: (drug name followed by E- Effective if Not Effective only list drug name) Tylenol - NSAID? s / steroids - Muscle relaxants - Antineuropathics (TCA, SNRI, antiepileptics) - Opioids - Topicals - Others/Naturals- 4. Physical Therapy : (Year/location/dur ation/benefit or no) (EX: 2016, neck, 8w, no benefit) - -Pt reports continuing to perform HEP which was previously learned from PT and/or physician direction for at least the past 6 weeks within the past 6 months. 5. Psychological comorbidities: (diagnosis/ seeing therapist or psychiatrist (Y/N)) - 6. Opioid risk screening - Personal/Family Hx of drug abuse (including prescriptions)?- Y/N - Alcohol use and/or BZDs?- Y/N - Oral morphine equivalent (OME) daily - -If >60 OMEs, Narcan discussed and/or prescribed? 7. Anticoagulants / Anti-platelets: (drug name/clearance to hold in past or obtained by us?) - 8. Injections/EMGs: (date/type/ % relief / duration of relief), (EMG date and positive findings) - 9. Spine/Major Joint Surgeries: -09/24/2024 - PNS RT Shoulder in [place]. 10. Patient has been treated with: (Y= yes, benefit Y or N) - Acupuncture: - Chiropractor: - Heat therapy: - Ice Therapy: - TENS: 11. RED FLAGS: (Y/N) Progressive neurologic deficits- Bowel and bladder function- Unexplained Weight loss- Prior cancer history- Trauma- Fevers / chills- Diabetic- Liver / Kidney Issues- 12. Labs: (ensure blood work within 1 yr reviewed for renal and liver function) -Pt states blood work has been performed within last 12 months and denies renal/liver dysfunction. 13. Imaging: (date/type) - - - PLAN: 1. New Medications this visit - CURRENT PAIN MEDS: - - - If Opiate medications were prescribed during this office visit the following applies: -The advantages and disadvantages of opioid therapy including but not limited to the risk of addiction, medication misuse, overdose, tolerance, respiratory depression and were discussed with the patient now and/or in the past. Alternatives such as NSAIDs, tylenol, therapy, ice, neuropathic medications, stretching and home exercise were discussed with the patient and the patient agreed to proceed and verbalized understanding. The [facility] opioid risk pamphlet was/has been previously provided to the patient. - [place] PDMP/[place]-Forsce was used in opioid decision making. Side effects of chronic opioid use such as constipation, urinary retention, pruritus, respiratory depression, sedation, dependence, addiction, tolerance, opioid induced hyperalgesia, osteopenia / fractures, hypogonadism and immune suppression were discussed in detail. Patient was advised to take the opioid medications as sparingly as possible. Also advised not to operate heavy machinery while under the influence of opioid medication. Patient acknowledges understanding of this. - An opioid agreement is on file. Random UDS will be done while patient is maintained on opioids. 2. PT ? prescribe none -Encouraged pt to continue home exercises that were learned via previous physician direction. The patient has been trying these exercise for more than 6 weeks. -Recommend walking forward and backward in waist-high water? t o improve balance, and to the core muscles of abdomen, and to increase flexibility and boosts cardiovascular fitness. - DME: No DME ordered at this time. 3. Psychological ? recommendations: none 4. Labs - obtain none 5. Imaging - Obtain: no diagnostic studies at this time - Reviewed available imaging prior to pt arrival - No tests were reviewed with pt during this appointment 6. Interventions ? schedule: none T/C: - - - 7. Referrals ? none 8. Records requested ? none 9. Follow up visit ? Patient 1 f/u for lead pull w/ Dr. Seals. 10. Additional Discussion ? Iván Seals MD We will continue to evaluate the patient's complex medical condition, namely chronic pain and its associated medical conditions, and manage the medical care services that serve as the continuing focal point for all needed health care services and/or with medical care services that are part of ongoing care related to the patient's complex pain condition. - The pathophysiology of the patient? s condition(s) was/were discussed. Conservative options were discussed -Patient agrees to recommendations and treatment course. They have agreed they will call the office with any questions, concerns, complaints, or problems. Risks, benefits, and alternatives were discussed with the patient. -Patient agrees to follow-up with their primary care provider and specialists as discussed Not available 11/13/2024 16:59:06 12/21/2024 12/21/2024 Dylan Orellana MD patient 1. Mr. Morton is a very pleasant patient with PMH of BPH. Patient is presenting with RT shoulder pain. Patient states having a PNS on the RT shoulder on the 2023 back in [place]. Pt is present for a Rt shoulder PNS lead pull. Pt reports 100% relief. Onset of Pain Approximate Date: (Month/Year) -11/2023 Current Pain Level: 0/10 Worst pain level: 10/10 2. Pain Generators/ Etiology Shoulder sub-acromial impingement 3. Previously trialed/Failed Meds: (drug name followed by E- Effective if Not Effective only list drug name) Tylenol - NSAID? s / steroids - Muscle relaxants - Antineuropathics (TCA, SNRI, antiepileptics) - Opioids - Topicals - Others/Naturals- 4. Physical Therapy : (Year/location/dur ation/benefit or no) (EX: 2016, neck, 8w, no benefit) - -Pt reports continuing to perform HEP which was previously learned from PT and/or physician direction for at least the past 6 weeks within the past 6 months. 5. Psychological comorbidities: (diagnosis/ seeing therapist or psychiatrist (Y/N)) - 6. Opioid risk screening - Personal/Family Hx of drug abuse (including prescriptions)?- Y/N - Alcohol use and/or BZDs?- Y/N - Oral morphine equivalent (OME) daily - -If >60 OMEs, Narcan discussed and/or prescribed? 7. Anticoagulants / Anti-platelets: (drug name/clearance to hold in past or obtained by us?) - 8. Injections/EMGs: (date/type/ % relief / duration of relief), (EMG date and positive findings) - 9. Spine/Major Joint Surgeries: -09/24/2024 - PNS RT Shoulder in [place] w/ 100% relief 10. Patient has been treated with: (Y= yes, benefit Y or N) - Acupuncture: - Chiropractor: - Heat therapy: - Ice Therapy: - TENS: 11. RED FLAGS: (Y/N) Progressive neurologic deficits- Bowel and bladder function- Unexplained Weight loss- Prior cancer history- Trauma- Fevers / chills- Diabetic- Liver / Kidney Issues- 12. Labs: (ensure blood work within 1 yr reviewed for renal and liver function) -Pt states blood work has been performed within last 12 months and denies renal/liver dysfunction. 13. Imaging: (date/type) - - - PLAN: 1. New Medications this visit - CURRENT PAIN MEDS: - - - If Opiate medications were prescribed during this office visit the following applies: -The advantages and disadvantages of opioid therapy including but not limited to the risk of addiction, medication misuse, overdose, tolerance, respiratory depression and were discussed with the patient now and/or in the past. Alternatives such as NSAIDs, tylenol, therapy, ice, neuropathic medications, stretching and home exercise were discussed with the patient and the patient agreed to proceed and verbalized understanding. The [facility] opioid risk pamphlet was/has been previously provided to the patient. - [place] PD[place] was used in opioid decision making. Side effects of chronic opioid use such as constipation, urinary retention, pruritus, respiratory depression, sedation, dependence, addiction, tolerance, opioid induced hyperalgesia, osteopenia / fractures, hypogonadism and immune suppression were discussed in detail. Patient was advised to take the opioid medications as sparingly as possible. Also advised not to operate heavy machinery while under the influence of opioid medication. Patient acknowledges understanding of this. - An opioid agreement is on file. Random UDS will be done while patient is maintained on opioids. 2. PT ? prescribe none -Encouraged pt to continue home exercises that were learned via previous physician direction. The patient has been trying these exercise for more than 6 weeks. -Recommend walking forward and backward in waist-high water? t o improve balance, and to the core muscles of abdomen, and to increase flexibility and boosts cardiovascular fitness. - DME: No DME ordered at this time. 3. Psychological ? recommendations: none 4. Labs - obtain none 5. Imaging - Obtain: no diagnostic studies at this time - Reviewed available imaging prior to pt arrival - No tests were reviewed with pt during this appointment 6. Interventions ? schedule: none T/C: - - - 7. Referrals ? none 8. Records requested ? none 9. Follow up visit ? PRN 10. Additional Discussion ? Iván Seals MD We will continue to evaluate the patient's complex medical condition, namely chronic pain and its associated medical conditions, and manage the medical care services that serve as the continuing focal point for all needed health care services and/or with medical care services that are part of ongoing care related to the patient's complex pain condition. - The pathophysiology of the patient? s condition(s) was/were discussed. Conservative options were discussed -Patient agrees to recommendations and treatment course. They have agreed they will call the office with any questions, concerns, complaints, or problems. Risks, benefits, and alternatives were discussed with the patient. -Patient agrees to follow-up with their primary care provider and specialists as discussed Not available 12/21/2024 16:23:08 Plan of Treatment Reminders Order Date Submit Date Provider Last Modified By Organization Details Last Modified Time Details Appointments None record ed. Lab None record ed. Referral None record ed. Procedures None record ed. Surgeries None record ed. Imaging None record ed. Medication Orders None record ed. Patient TargetsNo targets recorded. Patient Instructions Encounter Date Encounter Id Patient Instructions Last Modified By Organization Details Last Modified Time 11/13/2024 [id number] ASSESSMENT: Abdiaziz Morton presents for the removal of a Sprint device implanted for joint pain management. The device has been effective, and he is considering removal in mid-December. He also has a history of hernia, which he plans to address with a general surgeon. PLAN: - Schedule the removal of the Sprint device in mid-December. - Clean the area and remove the device, ensuring no lead fracture occurs. - Discuss any further issues related to shoulder, joint, back, or neck pain as needed. - Follow up with a general surgeon for hernia management. [email or web address] Not available 11/13/2024 16:46:37 12/21/2024 [id number] ASSESSMENT: The patient has a history of right shoulder pain that has not responded to therapy or PRP injections. He experienced temporary relief with cortisone injections. The Sprint stimulator device was removed without complications. PLAN: - The stimulator device was removed from the right shoulder. - The area was cleaned with alcohol and a small amount of antibiotic ointment was applied. - A Band-Aid was placed over the site. - The patient was advised that there is minimal aftercare required and that the Band-Aid does not need to be replaced unless desired. - The patient was informed that he may experience some aching and pressure during the removal process, but it should not be painful. - The patient was advised to follow up if he experiences any return of shoulder pain or if he wishes to discuss other treatment options. ASSESSMENT: The patient has a history of right shoulder pain that has not responded to therapy or PRP injections. He experienced temporary relief with cortisone injections. The Sprint stimulator device was removed without complications. PLAN: - The stimulator device was removed from the right shoulder. - The area was cleaned with alcohol and a small amount of antibiotic ointment was applied. - A Band-Aid was placed over the site. - The patient was advised that there is minimal aftercare required and that the Band-Aid does not need to be replaced unless desired. - The patient was informed that he may experience some aching and pressure during the removal process, but it should not be painful. - The patient was advised to follow up if he experiences any return of shoulder pain or if he wishes to discuss other treatment options. [email or web address] Not available 12/21/2024 12:46:47 Reason for Referral None Reported. Medical Equipment None Reported. Allergies No known drug allergies Medications Name Sig Start Date Stop Date Status Note LastModified by Organization Details LastModified Time celecoxib 200 mg capsule TAKE 1 CAPSULE BY MOUTH TWICE A DAY active Not Available Not Available No t Available ibuprofen 800 mg tablet TAKE 1 TABLET BY MOUTH THREE TIMES A DAY active Not Available Not Available No t Available tramadol 50 mg tablet TAKE 1 TABLET BY MOUTH TWICE A DAY NEEDED FOR PAIN 12/16 completed Not Available Not Available Not Available tamsulosin 0.4 mg capsule TAKE 1 CAPSULE BY MOUTH EVERYDAY AT BEDTIME active Not Available Not Available No t Available cephalexin 500 mg capsule TAKE 1 CAPSULE BY MOUTH THREE TIMES A DAY 12/16 completed Not Available Not Available Not Available gabapentin 300 mg capsule TAKE 1 CAPSULE BY MOUTH THREE TIMES A DAY active Not Available Not Available No t Available fluticasone propionate 50 mcg/actuati on nasal spray,suspe nsion USE 1 SPRAY UP EACH NOSTRIL ONCE DAILY FOR 5 DAYS THEN STOP 12/16 completed Not Available Not Available Not Available amoxicillin 875 mg-potassiu m clavulanate 125 mg tablet TAKE 1 TABLET BY MOUTH TWICE A DAY active Not Available Not Available No t Available Vitals Date Recorded Body height Body mass index (BMI) Body weight Provider Name and Address Organization Details Last Updated DateTime 11/13/2024 167.64 cm 39.5 kg/m2 547241.13 g Graham Gilliland [facility] 11/13/2024 08:46:30 Date Recorded Body height Body mass index (BMI) Body weight Provider Name and Address Organization Details Last Updated DateTime 12/21/2024 167.64 cm 39.5 kg/m2 974697.13 g Murphy Conklin [facility] 12/21/2024 10:33:15 Social History Question Answer Notes LastModified by Organizat ion Details LastModified Time Tobacco Smoking Status Current Some Day Smoker Chad farmer [facility] 11/13/2024 08:40:22 How Much Tobacco Do You Chew? None Information not available 11/13/2024 Last Dental Exam 04/18/2024 Information not available 11/13/2024 Are You On Disability Or Applying For It? No Information not available 11/13/2024 Employment Status Retired Information not available 11/13/2024 Last Day Of Work 07/23/2019 Information not available 11/13/2024 Currently Receiving Or Applying For Unemployment Information not available 11/13/2024 What Was The Date Of Your Most Recent Tobacco Screening? 12/21/2024 [email or web address] Information not available 12/21/2024 How Much Tobacco Do You Smoke? No Information not available 11/13/2024 Has Tobacco Cessation Counseling Been Provided? Yes [email or web address] Information not available 11/13/2024 On What Date Was Tobacco Cessation Counseling Provided? 12/21/2024 [email or web address] Information not available 12/21/2024 Sex: Unknown Functional Status Question Answer Note LastModified by Organizat ion Details LastModified Time Do you use any illicit or recreational drugs? No Information not available 11/13/2024 What is your level of alcohol consumption? Occasional Information not available 11/13/2024 Do you or have you ever used smokeless tobacco? Never used smokeless tobacco Information not available 11/13/2024 What is your occupation? Retired Information not available 11/13/2024 Mental Status None recorded. Family History Nothing Reported. Medical History No medical history recorded. Past Encounters Encounter ID Performer Location Encounter Start Date Encounter Closed Date Diagnosis/Indication Diagnosis SNOMED-CT Code Diagnosis ICD10 Code Diagnosis Note [id number] IVÁN SEALS MD [facility] [address] [place] [address] [address] [facility] [address] [place] [address] 11/13/2024 08:21:22 11/16/2024 10:24:58 Pain of right shoulder joint 0126583531 4547179 M25.511 [id number] IVÁN SEALS MD [facility] [address] [place] [address] [facility] [address] [place] [address] 12/21/2024 10:06:25 12/22/2024 11:01:14 Cervical radiculopathy 06072002 M54.12 Cervical spondylosis 387 102724 M47.812 Pain of ri ght shoulder joint 5174561064 4957714 M25.511 [facility] [id number] M62.838 Health Concerns Section Related Observation LastModified by Organization Detai ls LastModified Time None Recorded Concern Status LastModified by Organization Details LastModified Time None Recorded Advance Directives Directive None Recorded Payers Insurance Date Sequence Insurance Name Policy Number Policy Bunch Covered Member ID Bunch Member ID Guarantor Name 12/18/2024 [place] Abdiaziz Morton [id number] Abdiaziz Morton 12/18/2024 1 [place] [employer] Abdiaziz Morton [id number] Abdiaziz Morton 12/18/2024 2 [place] [id number] Abdiaziz Morton [id number] Abdiaziz Morton Notes Date Note Type Note Provider Name and Address Organization Details Recorded Time 11/13/2024 text/html Abdiaziz Morton i s a 69-year-old male presenting for a new patient visit for the removal of a Sprint device in his shoulder. He had the device implanted on 09/24 for joint pain management. He reports that the device has been effective in managing his pain. Abdiaziz also mentions having undergone PRP treatment in both shoulders previously, which was beneficial. He is considering having the device removed in mid-December, approximately three months post-implantation, as he feels it has served its purpose. Abdiaziz also discussed a history of hernia and is planning to have it addressed by a general surgeon locally. [place] [id number] [facility] [address], [place], [address], [facility] 11/13/2024 16:59:21 12/21/2024 text/html ShoulderReported bypatient.Pain level:right shoulder - 0/10 Abdiaziz Morton is a 69-year-old male presenting for a new patient visit for the removal of a Sprint device in his shoulder. He had the device implanted on 09/24 for joint pain management. He reports that the device has been effective in managing his pain. Abdiaziz also mentions having undergone PRP treatment in both shoulders previously, which was beneficial. He is considering having the device removed in mid-December, approximately three months post-implantation, as he feels it has served its purpose. Abdiaziz also discussed a history of hernia and is planning to have it addressed by a general surgeon locally. Abdiaziz Morton is a 69-year-old male who presents for an office consultation for his shoulder and cervical spine. He is here for the removal of a Sprint stimulator device from his right shoulder. The patient reports that his shoulder has been bothering him since last season, approximately December. He underwent therapy during the summer with no success and received cortisone injections, which provided temporary relief. He also tried PRP injections in both shoulders, with great success on the left side but no improvement on the right side. The patient mentions that he experienced some buzzing when the stimulator was turned on, with the optimal setting being between 62-64. He is concerned about the potential return of shoulder pain after the removal of the stimulator device. [place] [id number] [facility] [address], [place], [address], [facility] 12/21/2024 16:23:16
--- OUTSIDE RECORDS SUMMARY | 2025-03-22 12:26 | XMS_ITS | Data Portability ---
Author Organization [facility], [facility] Address [address] [place] [address] Care Team Providers Care Honey Processor Name Role Phone MESHA FUNES Referring Provider MESHA FUNES Primary Care Provider [phone] Assessment Encounter Date Assessment Date Assessment LastModified by Organization Details LastModified Time 06/08/2024 06/08/2024 Assessment: Patient presents with signs and symptoms consistent with cervical radiculopathy. Demonstrates neck pain that radiates into (B) shoulders and decreased cervical ROM. Plan: Improve cervical ROM and stability as tolerated. Frequency: 2x/wk for 6 wks. [email or web address] Not available 06/08/2024 20:24:11 06/10/2024 06/10/2024 Assessment: Patient demonstrates improved UT and levator motion compared to initial evaluation. Introduced to cervical isometrics and tolerated well without increased neck pain. Plan: Improve cervical ROM and stability as tolerated. [email or web address] Not available 06/10/2024 12:50:06 06/16/2024 06/16/2024 Assessment: Moderate relief with manual cervical traction, while demonstrating a chin tuck performing scapular sport cord exercises without adverse effects. Plan: Improve cervical ROM and stability as tolerated. [email or web address] Not available 06/16/2024 10:53:03 06/23/2024 06/23/2024 Assessment: Patient demonstrates improving posture awareness. Good mechanics with resisted rows and extensions. Plan: Improve cervical ROM and stability as tolerated. [email or web address] Not available 06/24/2024 14:41:35 Plan of Treatment Reminders Order Date Submit Date Provider Last Modified By Organization Details Last Modified Time Details Appointments None record ed. Lab None record ed. Referral None record ed. Procedures None record ed. Surgeries None record ed. Imaging None record ed. Medication Orders None record ed. Patient Targets Encounter Date Encounter Id Patient Goals Patient Target Last Modified By Organization Details Last Modified Time STGs 3 Weeks:1. Decrease resting pain to 3/10 to decrease apprehension to perform ADLs.2. Increase cervical ROM to help check blind spot while driving. LTGs 6 Weeks:1. Able to lift 15# overhead with proper body mechanics without increased neck pain. 2. Able to look down with proper posture while reading without increasing symptoms. [email or web address] Not available 06/09/2024 08:00:06 Patient InstructionsNo instructions recorded. Reason for Referral None Reported. Results Created Date Observation Date Name Description Value Unit Range Abnormal Flag Note LastModifiedBy Organization Detail LastModifiedTime 07/03/20 24 08/02/2023 imagi ng/di agnos tic resul t No observ ation record ed. [email or web address] Not Available 06/06 14:15:12 07/03/20 24 08/16/2023 imagi ng/di agnos tic resul t No observ ation record ed. [email or web address] Not Available 06/06 14:15:13 Result Notes None recorded. Procedures Surgical History Date Name Laterality Status Provider Name and Address Organization Details Recorded Time 4 54187 Therapeutic Exercise (1:1) completed Joao Garcia DPT [address], [place], [address], [facility] 06/23/2024 08:04:37 4 56048 Therapeutic Exercise (1:1) completed Jeremy Navarrete PTA [address], [place], [address], [facility] 06/16/2024 10:53:06 4 81776 Therapeutic Exercise (1:1) completed Joao Garcia DPT [address], [place], [address], [facility] 06/10/2024 12:48:56 4 26818 Therapeutic Exercise (1:1) completed Joao Zielenski, DPT [address], [place], [address], [facility] 06/08/2024 20:21:22 4 59486: Low complexity PT Eval completed Joao Garcia, DPT [address], [place], [address], [facility] 06/08/2024 20:21:44 4 G8417 BMI Above Upper Parameters, F/U Documented completed Joao Garcia DPT [address], [place], [address], [facility] 06/05/2024 13:52:49 4 G8428 Current Meds NOT Documented Reason Not Specified completed KORIN VillatoroT [address], [place], [address], [facility] 06/08/2024 20:21:51 4 Sports Shoulder Bilateral completed Tommy Green PA-C [address], [place], [address], [facility] 03/13/2024 08:25:39 Imaging Results Imaging Date Name Status LastModified by Organiz ation Details LastModified Time 08/02/2023 imaging/diag nostic result completed Information not available 07/03/2024 14:15:12 08/16/2023 imaging/diag nostic result completed Information not available 07/03/2024 14:15:13 Procedure Notes None recorded. Medical Equipment None Reported. Medications Name Sig Start Date Stop Date Status Note LastModified by Organization Details LastModified Time tramadol 50 mg tablet TAKE 1 TABLET BY MOUTH TWICE A DAY NEEDED FOR PAIN active Not Available Not Available No t Available cephalexin 500 mg capsule TAKE 1 CAPSULE BY MOUTH THREE TIMES A DAY active Not Available Not Available No t Available Vitals Date Recorded Body height Body mass index (BMI) Body weight Provider Name and Address Organization Details Last Updated DateTime 03/13/2024 167.64 cm 38.7 kg/m2 796008.17 g SHAYLA PHAN [place] [facility] 03/13/2024 08:29:47 Date Recorded Body height Body mass index (BMI) Body weight Provider Name and Address Organization Details Last Updated DateTime 06/08/2024 167.64 cm 38.7 kg/m2 252480.17 g Joao Garcia, DPT [address], [place], [address], [place] [facility] 06/05/2024 13:52:35 Social History None recorded. Functional Status None recorded. Mental Status None recorded. Family History Nothing Reported. Medical History No medical history recorded. Past Encounters Encounter ID Performer Location Encounter Start Date Encounter Closed Date Diagnosis/Indication Diagnosis SNOMED-CT Code Diagnosis ICD10 Code Diagnosis Note [id number] Tommy Green PA-C [facility] 2nd floor [address] [place] [address] 03/13/2024 08:20:01 03/13/2024 08:58:32 Full thickness rotator cuff tear 811470650 M75.121 M75.004 [id number] Joao Garcia T [facility] [address] [place] [address] 06/08/2024 11:32:58 06/08/2024 13:17:36 Cervical radiculopathy 38828492 M54.12 [id number] Joao Gracia T [facility] [address] [place] [address] 06/10/2024 10:24:46 06/10/2024 13:35:06 Cervical radiculopathy 69091665 M54.12 [id number] Jeremy Navarrete, [facility] [address] [place] [address] 06/16/2024 09:58:48 06/16/2024 11:09:35 Cervical radiculopathy 80265735 M54.12 [id number] Joao Garcia DPT [facility] [address] [place] [address] 06/23/2024 15:28:00 06/25/2024 08:45:09 Cervical radiculopathy 68435202 M54.12 Health Concerns Section Related Observation LastModified by Organization Detai ls LastModified Time None Recorded Concern Status LastModified by Organization Details LastModified Time None Recorded Advance Directives Directive None Recorded Payers Encounter Date Sequence Insurance Name Policy Number Policy Bunch Covered Member ID Bunch Member ID Guarantor Name 03/13/2024 1 [place] [employer] Abdiaziz A Labrecque [id number] Abdiaziz Labrecque 03/13/2024 2 [facility] - PLAN 1 (MEDICARE SUPPLEMENT) [id number] Abdiaziz Labrecque [id number] Abdiaziz Labrecque 06/08/2024 1 [place] [employer] [place] Abdiaziz A Labrecque [id number] Abdiaziz Labrecque 06/08/2024 2 [facility] - PLAN 1 (MEDICARE SUPPLEMENT) [id number] Abdiaziz Labrecque [id number] Abdiaziz Labrecque 06/10/2024 1 [place] [employer] [place] Abdiaziz A Labrecque [id number] Abdiaziz Labrecque 06/10/2024 2 [facility] - PLAN 1 (MEDICARE SUPPLEMENT) [id number] Abdiaziz Labrecque [id number] Abdiaziz Labrecque 06/16/2024 1 [place] [employer] [place] Abdiaziz A Labrecque [id number] Abdiaziz Labrecque 06/16/2024 2 [facility] - PLAN 1 (MEDICARE SUPPLEMENT) [id number] Abdiaziz Labrecque [id number] Abdiaziz Labrecque 06/23/2024 1 [place] Abdiaziz A Labrecque [id number] Abdiaziz Labrecque 06/23/2024 2 [facility] - PLAN 1 (MEDICARE SUPPLEMENT) [id number] Abdiaziz Labrecque [id number] Abdiaziz Labrecque Notes Date Note Type Note Provider Name and Address Organization Details Recorded Time 03/13/2024 text/html I am seeing the patient today under the supervision of Dr. Little who was available but who did not see the patient.REASON FOR VISITPatient comes to the office with known history of bilateral rotator cuff disease with chronic rotator cuff tears. Patient continues to prefer nonsurgical management. Excellent benefit from previous cortisone 3 months ago. The patient has done well with conservative management for their shoulder pain. Recently reports increasing discomfort over the past several weeks without injury. Pain is generalized about the shoulder and discomfort is noted at night.PAST MEDICAL/SURGICAL HISTORYCurrent medications and surgeries were reviewed per intake sheet.PHYSICAL FINDINGSThe patient is well appearing, in no apparent distress, alert and oriented to person, place and time. Gait is symmetric. No significant swelling, warmth or erythema about either shoulder.Bilateral Shoulder exam : ROM forward elevation 165? ? ?, ER 70? ? ?, IR to L3 there is mild tenderness to palpation about the shoulder, moderate pain through mid range manipulations. 4/5 strength of the shoulder. Good stability of the shoulder.Peripheral, vascular, lymphatic examination, skin, neurologic coordination, reflexes, sensation are within normal limits.ASSESSMENTChr onic rotator cuff tears bilateral shoulders.PLANThe patient has done well with conservative management in regards to the shoulder. Continued conservative management recommended. Moderating activities with the upper extremity recommended also.Recommended repeating corticosteroid injection for both shoulders which he requests and agrees to. Patient tolerated the injection well. Moderating activities with the upper extremity recommended. The patient will follow up as symptoms require going forward. Tommy Green PA-C [address], [place], [address], [facility] 03/13/2024 08:43:06 06/08/2024 text/html Patient reports of chronic neck pain that can radiate into (B) shoulders, but down the arms. No c/o numbness or tingling. States that he can self cavitates his neck and relieve symptoms temporarily. Reports that he is receiving a PRP injection into his shoulders this (06/11). Joao Garcia DPT [address], [place], [address], [facility] 06/09/2024 08:00:44 06/10/2024 text/html Patient reports being compliant with HEP and has noticed a decrease in pain. Joao Garcia DPT [address], [place], [address], [facility] 06/10/2024 12:50:28 06/16/2024 text/html Pt. received PRP injections in (B) shoulders last week feeling relief, while also feeling relief in his neck with stretches. Jeremy Navarrete, SOCIAL WORK FACULTY MEMBER [address], [place], [address], [facility] 06/16/2024 10:54:15 06/23/2024 text/html Patient reports feeling good overall. Resting pain has gotten significantly better, but certain movements still provoke a pain response. Joao Garcia, DPT [address], [place], [address], [facility] 06/24/2024 14:41:46
== END 2025-03-22 12:15 | disposition home or self-care (01) ==
LOC: HO.PMC 11:39
PROVIDERS: PCP Family Medicine; Visit Provider Internal Medicine
DX: M25.512 Pain in left shoulder (principal); G89.29 Other chronic pain
CPT/HCPCS: 99213

== ENCOUNTER → 2025-03-22 11:39 | Outpatient (BNVA) | payer MEDICARE, SELFPAY | PROVIDERS: PCP Family Medicine; Visit Provider Internal Medicine | DX: M25.511 Pain in right shoulder (principal); M25.512 Pain in left shoulder; G89.29 Other chronic pain | CPT/HCPCS: 99212 ==

== ENCOUNTER 2025-04-08 06:08 | Outpatient (REF) | payer MEDICARE, SELFPAY ==
--- OUTSIDE RECORDS SUMMARY | 2025-04-08 06:10 | XMS_ITS | Data Portability ---
Author Organization [place] [facility] Address [address] [place] [address] Care Team Providers Care Asset Protection Detective Name Role Phone MESHA FUNES Primary Care Provider [phone] Assessment Encounter Date Assessment Date Assessment LastModified by Organization Details LastModified Time 11/13/2024 11/13/2024 Dylan Orellana MD patient 1. Mr. Morton is a very pleasant patient with PMH of BPH. Patient is presenting with RT shoulder pain. Patient states having a PNS on the RT shoulder on the 2023 back in [place]. Patient will f/u for a 1 month [...] agreed to proceed and verbalized understanding. The [facility] opioid risk pamphlet was/has been previously provided to the patient. - [place] PDMP/[place] was used in opioid decision making. [...] RT shoulder on the 2023 back in [place]. Pt is present for a Rt shoulder [...] agreed to proceed and verbalized understanding. The [facility] opioid risk pamphlet was/has been previously provided to the patient. - [place] PD[place] was used in opioid decision making. [...] By Organization Details Last Modified Time 11/13/2024 [id number] ASSESSMENT: Abdiaziz Morton presents for the removal [...] management. [email or web address] Not available 11/13/2024 16:46:37 12/21/2024 [id number] ASSESSMENT: The patient has a history of [...] Updated DateTime 11/13/2024 167.64 cm 39.5 kg/m2 012151.13 g Graham Gilliland [facility] 11/13/2024 08:46:30 Date Recorded Body height Body mass index (BMI) Body weight Provider Name and Address Organization Details Last Updated DateTime 12/21/2024 167.64 cm 39.5 kg/m2 400207.13 g Murphy Conklin [facility] 12/21/2024 10:33:15 Social History Question Answer Notes LastModified by Organizat ion Details LastModified Time Tobacco Smoking Status Current Some Day Smoker Chad farmer [facility] 11/13/2024 08:40:22 How Much Tobacco Do You [...] Of Your Most Recent Tobacco Screening? 12/21/2024 [email or web address] Information not available 12/21/2024 How Much Tobacco Do You Smoke? No Information not available 11/13/2024 Has Tobacco Cessation Counseling Been Provided? Yes [email or web address] Information not available 11/13/2024 On What Date Was Tobacco Cessation Counseling Provided? 12/21/2024 [email or web address] Information not available 12/21/2024 Sex: Unknown Functional [...] SNOMED-CT Code Diagnosis ICD10 Code Diagnosis Note [id number] IVÁN SEALS MD [facility] [address] [facility] [address] [place] [address] 11/13/2024 08:21:22 11/16/2024 10:24:58 Pain of right shoulder joint [id number] 6907849 M25.511 [id number] IVÁN SEALS MD [facility] [address] [address] [facility] [address] [place] [address] 12/21/2024 10:06:25 12/22/2024 11:01:14 Cervical radiculopathy 89325349 M54.12 Cervical spondylosis 387 107510 M47.812 Pain of ri ght shoulder joint 3128122051 7249696 M25.511 [facility] 17346261 M62.838 Health Concerns Section Related Observation LastModified by Organization Detai ls LastModified Time None Recorded Concern Status LastModified by Organization Details LastModified Time None Recorded Advance Directives Directive None Recorded Payers Insurance Date Sequence Insurance Name Policy Number Policy Bunch Covered Member ID Bunch Member ID Guarantor Name 12/18/2024 [place] Abdiaziz Morton [id number] Abdiaziz Morton 12/18/2024 1 [place] B[place] [employer] Abdiaziz Morton [id number] Abdiaziz Morton 12/18/2024 2 [place] [id number] Abdiaziz Morton [id number] Abdiaziz Morton Notes Date Note Type [...] a general surgeon locally. [place] [address] [facility] [address], [place], [address], [facility] 11/13/2024 16:59:21 12/21/2024 text/html ShoulderReported bypatient.Pain level:right [...] of the stimulator device. [place] [address] [facility] [address], [place], [address], [facility] 12/21/2024 16:23:16
== END 2025-04-08 06:09 | disposition home or self-care (01) ==
LOC: CF 06:08
PROVIDERS: Visit Provider Internal Medicine
DX: Z13.89 Encounter for screening for other disorder (principal)

== ENCOUNTER 2025-04-08 11:00 | Outpatient (AMB) | payer SELFPAY ==
[2025-04-08 11:10] VITALS: BP 107/64; PULSE 53; RESP 16; O2SAT 99
--- NOTE | 2025-04-08 11:10 | A.OFFVIS_ITS ---
Vital Signs 04/08/25 11:10 04/08/25 12:05 BP 107/64 119/66 Blood Pressure Location Lt brachial Lt brachial Position Sitting Sitting Respiration 16 16 Pulse 53 58 Pulse Source Pulse Oximeter Pulse Oximeter Pulse Oximetry (%) 99 99 Oxygen Delivery Method Room Air Room Air Intake Visit Reasons: Left shoulder PRP Primary Education Professor Required: No Allergies No Known Allergies Allergy (Verified 04/08/25 11:10) Medication List - Last Reconciled 04/08/25 by Marisol Santana LPN acetaminophen (Tylenol Extra Strength) 1,000 mg PO Q6H PRN celecoxib (Celebrex) 200 mg PO BID naproxen sodium (Aleve) 220 mg PO BID PRN semaglutide mg subcut tramadol 50 mg PO BID PRN HPI HPI Left shoulder PRP: Details: Patient presents for scheduled procedure. Denies any recent cough, cold, infection, fever or other significant changes in medical history since last office visit. [facility] Medical History (Updated 09/24/24 @ 13:02 by Constantine Jones MD) Morbid obesity Physical Exam Vital Signs: Last Vital Signs Pulse 58 04/08/25 12:05 Resp 16 04/08/25 12:05 BP 119/66 04/08/25 12:05 Pulse Ox 99 04/08/25 12:05 Oxygen Delivery Method Room Air 04/08/25 12:05 Office Procedures Platelet Rich Plasma Injection PRP Joint Injection After informed written consent was obtained, pre-procedure oxygen saturation, heart rate, and blood pressure were recorded. An 18 gauge butterfly needle was used to obtain 51 mL of whole blood in a syringe prefilled with 9 mL anticoagulant citrate dextrose solution for 60 mL total. The 60 mL mixture was counter balanced to within 1 g and spun at 3500 rpm for 11 minutes. Platelet poor plasma was then drawn using a bench top press model. 6-7 mL of slightly leukocyte rich PRP was isolated into one 10 mL syringe. 2-3 mL of the PRP was injected around the long head of the left biceps tendon and 3-4 mL was deposited in the subacromial region along the supraspinatus tendon. Images of the ultrasound guided injections were saved to the patient's permanent record. Primary Site: left shoulder Prep: site was prepped using sterile technique Approach Used: anterolateral Procedure: The patient tolerated the procedure well XCELL Platelet Plasma - 0232T 60 mL All charges added?: Procedure code (CPT) selection complete Assessment & Plan Assessment & Plan (1) Chronic shoulder pain: Code(s): M25.519 - Pain in unspecified shoulder; G89.29 - Other chronic pain Category: Medical Plan Patient is status post left shoulder PRP injections. Patient tolerated procedure well and was discharged home in stable condition with discharge instructions. All questions were answered. We will follow-up via telephone or in clinic to assess response to therapy. A follow-up appointment was made during today's visit. Orders: Orders [place] guidance in treatment room 04/08/25 M25.519 - Pain in unspecified shoulder, G89.29 - Other chronic pain AMB Platelet Rich Plasma (PRP) Injection 04/08/25 M25.519 - Pain in unspecified shoulder, G89.29 - Other chronic pain Coding Level of Care Code Procedure Only Diagnoses Chronic shoulder pain M25.519; G89.29 CPT Codes XCELL Kit 60mL ([id number])
[2025-04-08 12:05] VITALS: BP 119/66; PULSE 58; RESP 16; O2SAT 99
== END 2025-04-08 12:04 | disposition home or self-care (01) ==
LOC: HO.PMCPRC 11:00
PROVIDERS: PCP Family Medicine; Visit Provider Internal Medicine
DX: M25.519 Pain in unspecified shoulder (principal); G89.29 Other chronic pain
CPT/HCPCS: 0232T

== ENCOUNTER 2025-04-09 11:27 | Outpatient (REF) | payer MEDICARE, SELFPAY ==
[2025-04-09 11:39] LABS: MANUAL DIFF FLAG NO
[2025-04-09 12:02] LABS: Basophils Absolute Auto 0.1 X10*3/uL (0.0-0.2); Basophils Percent Auto 0.8 % (0-2); Eosinophils Absolute Auto 0.1 X10*3/uL (0.0-0.4); Eosinophils Percent Auto 1.3 % (0-4); Hematocrit 39.9 % (42.0-52.0); Hemoglobin 13.2 g/dl (14.0-18.0); Imm Gran Abs Auto 0.02 X10*3/uL (0.00-0.03); Imm Gran Pct Auto 0.3 % (0.0-0.4); Lymphocytes Absolute Auto 1.2 X10*3/uL (1.2-4.9); Lymphocytes Percent Auto 18.9 % (20-40); Mean Corpuscular HGB Conc 33.1 g/dl (31.0-36.0); Mean Corpuscular Hemoglobin 30.8 pg (27.0-33.0); Mean Corpuscular Volume 93.2 fL (80.0-98.0); Mean Platelet Volume 10.2 fL (9.4-12.4); Monocytes Absolute Auto 0.7 X10*3/uL (0.1-1.2); Monocytes Percent Auto 11.2 % (2-11); Neutrophils Absolute Auto 4.2 x10*3/uL (2.0-8.3); Neutrophils Percent Auto 67.5 % (45-73); Platelet Count 189 X10*3/uL (160-400); Red Blood Count 4.28 X10*6/uL (4.60-5.80); Red Cell Distribution Width 13.9 % (11.0-16.0); White Blood Count 6.2 X10*3/uL (4.8-10.8)
--- OUTSIDE RECORDS SUMMARY | 2025-04-09 12:15 | XMS_ITS | Data Portability ---
Author Organization [place] [facility] Address [address] [place] [address] Care Team Providers Care Client Engagement Specialist Name Role Phone MESHA FUNES Primary Care Provider Assessment Encounter Date Assessment Date Assessment LastModified by Organization Details LastModified Time 11/13/2024 11/13/2024 Dylan Orellana MD patient 1. Mr. Morton is a very pleasant patient with PMH of BPH. Patient is presenting with RT shoulder pain. Patient states having a PNS on the RT shoulder on the 2023 back in [place]. Patient will f/u for a 1 month [...] proceed and verbalized understanding. The [facility] opioid risk pamphlet was/has been previously provided to the patient. - [place] PDMP/[place] was used in opioid decision making. [...] RT shoulder on the 2023 back in [place]. Pt is present for a Rt shoulder [...] agreed to proceed and verbalized understanding. The [facility] opioid risk pamphlet was/has been previously provided to the patient. - [place] was used in opioid decision making. [...] By Organization Details Last Modified Time 11/13/2024 [id number] ASSESSMENT: Abdiaziz Morton presents for the removal [...] management. [email or web address] Not available 11/13/2024 16:46:37 12/21/2024 [id number] ASSESSMENT: The patient has a history of [...] Updated DateTime 11/13/2024 167.64 cm 39.5 kg/m2 980121.13 g Graham Gilliland [facility] 11/13/2024 08:46:30 Date Recorded Body height Body mass index (BMI) Body weight Provider Name and Address Organization Details Last Updated DateTime 12/21/2024 167.64 cm 39.5 kg/m2 748296.13 g Murphy Conklin [facility] 12/21/2024 10:33:15 Social History Question Answer Notes LastModified by Organizat ion Details LastModified Time Tobacco Smoking Status Current Some Day Smoker Chad farmer [facility] 11/13/2024 08:40:22 How Much Tobacco Do You [...] Of Your Most Recent Tobacco Screening? 12/21/2024 Information not available 12/21/2024 How Much Tobacco Do You Smoke? No Information not available 11/13/2024 Has Tobacco Cessation Counseling Been Provided? Yes [email or web address] Information not available 11/13/2024 On What Date Was Tobacco Cessation Counseling Provided? 12/21/2024 [email or web address] Information not available 12/21/2024 Sex: Unknown Functional [...] SNOMED-CT Code Diagnosis ICD10 Code Diagnosis Note [id number] IVÁN SEALS MD [facility] [address] [address] [facility] [address] [place] [address] 11/13/2024 08:21:22 11/16/2024 10:24:58 Pain of right shoulder joint 5319651817 7337183 M25.511 [id number] IVÁN SEALS MD [facility] [address] [address] [facility] [address] [place] [address] 12/21/2024 10:06:25 12/22/2024 11:01:14 Cervical radiculopathy 42798696 M54.12 Cervical spondylosis 387 645237 M47.812 Pain of ri ght shoulder joint 4737602354 7584534 M25.511 [facility] [id number] M62.838 Health Concerns Section Related Observation LastModified by Organization Detai ls LastModified Time None Recorded Concern Status LastModified by Organization Details LastModified Time None Recorded Advance Directives Directive None Recorded Payers Insurance Date Sequence Insurance Name Policy Number Policy Bunch Covered Member ID Bunch Member ID Guarantor Name 12/18/2024 [place] Abdiaziz Morton [id number] Abdiaziz Morton 12/18/2024 1 [place] B[place] [employer] Abdiaziz Morton [id number] Abdiaziz Morton 12/18/2024 2 [place] [id number] Abdiaziz Morton [id number] Abdiaziz Morton Notes Date Note Type [...] a general surgeon locally. IVÁ[place] [address] [facility] [address], [place], [address], [facility] 11/13/2024 16:59:21 12/21/2024 text/html ShoulderReported bypatient.Pain level:right [...] of the stimulator device. [place] [address] [facility] [address], [place], [address], [facility] 12/21/2024 16:23:16
== END 2025-04-09 11:28 | disposition home or self-care (01) ==
LOC: HO.LAB 11:27
PROVIDERS: PCP Family Medicine; Visit Provider Family Medicine
DX: D50.9 Iron deficiency anemia, unspecified (principal)
CPT/HCPCS: 36415; 85025

== ENCOUNTER 2025-05-26 09:20 | Outpatient (AMB) | payer MEDICARE, SELFPAY ==
--- NOTE | 2025-05-26 09:31 | A.OFFVIS_ITS ---
Vital Signs 05/26/25 09:36 Height 5 ft 6 in Weight 240 lb BMI 38.7 BP 132/73 Blood Pressure Location Lt brachial Position Sitting Pulse 54 Pulse Source Pulse Oximeter Pulse Oximetry (%) 98 Oxygen Delivery Method Room Air Intake Visit Reasons: s/p left shoulder PRP Allergies No Known Allergies Allergy (Verified 05/26/25 09:39) HPI HPI s/p left shoulder PRP: Details: History of Present Illness The patient is a 69-year-old male presenting with knee and ankle pain. The knee pain has been persistent, and the patient previously received cortisone injections in [place], which provided temporary relief. X-rays taken in [place] showed no ggok-ug-lksk contact, and the patient underwent a series of five gel injections, which were ineffective and painful. The patient was informed of significant arthritis in the knee, and PRP injections were discussed as a potential treatment option. The ankle pain began after the knee pain and was initially thought to be related to a ligament issue, as indicated by the location of the pain on the outside of the ankle. The patient received a cortisone injection for the ankle, which provided some relief, and was advised to use a brace during activities like pickleball. The patient has experienced significant weight loss, approximately 32 pounds since December, which has positively impacted his overall health. He engages in regular physical activity, such as walking his dog daily, and has switched to wearing tie shoes, which has helped alleviate some discomfort. Pain Description - Knee pain is persistent and was previously treated with cortisone injections, providing temporary relief. - Gel injections in the knee were ineffective and painful. - Ankle pain is located on the outside, initially thought to be ligament- related, and was relieved by cortisone injection. - Ankle pain fluctuates in severity and is alleviated by wearing a brace during activities. Physical Exam Results - X-rays of the knee showed no zgep-dq-jzir contact but significant arthritis. - X-rays of the ankle were performed, but specific findings were not detailed. Pain Management - Affect: Pain impacts daily activities, but weight loss has improved overall health. - Analgesia: Cortisone injections provided temporary relief for knee and ankle pain. - Activities of Daily Living: Regular walking and wearing tie shoes have helped manage discomfort. [facility], [facility] Medical History (Updated 06/01/25 @ 10:49 by Constantine Jones MD) Morbid obesity Physical Exam Vital Signs: Last Vital Signs Pulse 54 05/26/25 09:36 BP 132/73 05/26/25 09:36 Pulse Ox 98 05/26/25 09:36 Oxygen Delivery Method Room Air 05/26/25 09:36 BMI result Body Mass Index 38.7 Assessment & Plan Assessment & Plan (1) Knee osteoarthritis: Code(s): M17.9 - Osteoarthritis of knee, unspecified Category: Medical (2) Bilateral rotator cuff dysfunction: Code(s): M67.911 - Unspecified disorder of synovium and tendon, right shoulder; M67.912 - Unspecified disorder of synovium and tendon, left shoulder Category: Medical Plan Plan - Consider PRP injections for knee arthritis as a treatment option, potentially combined with A2M protein concentrate for enhanced effect. - Use a brace for ankle support during activities like pickleball to alleviate pain. - Schedule PRP and protein concentrate injections for the knee before the patient's travel to [place]. Patient was informed and verbally consented to the use of an ambient scribe for clinic note documentation during this visit. Discussion Notes I discussed with the patient the potential benefits of PRP injections for knee arthritis, highlighting the option to combine it with a protein concentrate for enhanced efficacy. We also talked about the use of a brace for ankle support during activities to manage pain. The patient was advised to schedule the injections before his upcoming trip to [place], ensuring adequate time for recovery. Patient Instructions - Schedule PRP and protein concentrate injections for the knee before traveling to [place]. - Use a brace during activities to support the ankle and reduce pain. - Continue regular physical activity, such as walking, and wear tie shoes to help manage discomfort. Coding Level of Care Code Est Pt Level 3 (01835) Diagnoses Knee osteoarthritis M17.9 Bilateral rotator cuff dysfunction M67.911; M67.912
[2025-05-26 09:36] VITALS: BP 132/73; PULSE 54; O2SAT 98; BMI 38.7
--- OUTSIDE RECORDS SUMMARY | 2025-05-26 09:51 | XMS_ITS | Encounter Summary ---
Author Organization [facility] Address [address] [place] [address] Phone Care Team Providers Care Graphic Pre Press Trades Worker Name Role Phone Unknown, Unknown Primary Care Provider Ana bloom Encounter Details Date Type Department Care Team (Late st Contact Info) Description 09/08/2021 Transcribe Orders Virtual Department [address] [place] [address] Eyal Monique MD [address] [place] [address] [place] [address] Bilateral carotid bruits (Primary Dx) Social History Tobacco Use Types Packs/Day Years Used Date Smoking Tobacco: Never Assessed Sex and Gender Information Value Date Recorded Sex Assigned at Not on file Legal Sex Male 2:12 PM EDT Gender Identity Not on file Sexual Orientation Not on file documented as of this encounter Plan of Treatment Not on file documented as of this encounter Results * US Carotid Duplex Complete (Bilateral) (09/13/2021 2:40 PM EST) Anatomical Region Laterality Modality Heart, Thoracic Vasculature, Neck Ultrasound 09/13/2021 2:40 PM EST Impressions 09/13/2021 2:45 PM EST 1.No evidence of 50% or greater stenosis in the right or left internal carotid artery. 2.Antegrade flow in both vertebral arteries. Narrative 09/13/2021 2:45 PM EST US CAROTID DUPLEX COMPLETE (BILATERAL) TECHNIQUE: Ultrasound Carotid Duplex with color flow Doppler and spectral waveform Doppler. Arterial inflow was assessed. COMPARISON: None FINDINGS: Right Common carotid artery: Proximal: No significant stenosis. Mid: No significant stenosis. Distal: No significant stenosis. Internal carotid artery: Proximal: No significant stenosis. Mid: No significant stenosis. Distal: No significant stenosis. External carotid artery: No significant stenosis. Vertebral artery: Antegrade. Left Common carotid artery: Proximal: No significant stenosis. Mid: No significant stenosis. Distal: No significant stenosis. Internal carotid artery: Proximal: No significant stenosis. Mid: No significant stenosis. Distal: No significant stenosis. External carotid artery: No significant stenosis. Vertebral artery: Antegrade. Right Peak Systolic Velocities: Proximal CCA: 75 cm/s Distal CCA: 64 cm/s Proximal ICA: 70 cm/s Mid ICA: 94 cm/s Distal ICA: 105 cm/s ECA: 65 cm/s Vertebral: 41 cm/s Right End Diastolic Velocities: Proximal CCA: 13 cm/s Distal CCA: 17 cm/s Proximal ICA: 28 cm/s Mid ICA: 42 cm/s Distal ICA: 40 cm/s ECA: 15 cm/s Vertebral: 31 cm/s Left Peak Systolic Velocities: Proximal CCA: 72 cm/s Distal CCA: 56 cm/s Proximal ICA: 60 cm/s Mid ICA: 49 cm/s Distal ICA: 61 cm/s ECA: 112 cm/s Vertebral: 31 cm/s Left End Diastolic Velocities: Proximal CCA: 22 cm/s Distal CCA: 17 cm/s Proximal ICA: 21 cm/s Mid ICA: 22 cm/s Distal ICA: 28 cm/s ECA: 24 cm/s Vertebral: 10 cm/ss Abbreviations: CCA = Common Carotid Artery. ICA = Internal Carotid Artery. ECA = External Carotid Artery. Vert = Vertebral Artery. ICA/CCA ratio = maximal ICA PSV divided by the maximal CCA PSV. Procedure Note Jaden Adams MD - 09/13/2021 US CAROTID DUPLEX COMPLETE (BILATERAL) TECHNIQUE: Ultrasound Carotid Duplex with color flow Doppler and spectralwaveform Doppler. Arterial inflow was assessed. COMPARISON: None FINDINGS: Right Common carotid artery: Proximal: No significant stenosis. Mid: No significant stenosis. Distal: No significant stenosis. Internal carotid artery: Proximal: No significant stenosis. Mid: No significant stenosis. Distal: No significant stenosis. External carotid artery: No significant stenosis. Vertebral artery: Antegrade. Left Common carotid artery: Proximal: No significant stenosis. Mid: No significant stenosis. Distal: No significant stenosis. Internal carotid artery: Proximal: No significant stenosis. Mid: No significant stenosis. Distal: No significant stenosis. External carotid artery: No significant stenosis. Vertebral artery: Antegrade. Right Peak Systolic Velocities: Proximal CCA: 75 cm/s Distal CCA: 64 cm/s Proximal ICA: 70 cm/s Mid ICA: 94 cm/s Distal ICA: 105 cm/s ECA: 65 cm/s Vertebral: 41 cm/s Right End Diastolic Velocities: Proximal CCA: 13 cm/s Distal CCA: 17 cm/s Proximal ICA: 28 cm/s Mid ICA: 42 cm/s Distal ICA: 40 cm/s ECA: 15 cm/s Vertebral: 31 cm/s Left Peak Systolic Velocities: Proximal CCA: 72 cm/s Distal CCA: 56 cm/s Proximal ICA: 60 cm/s Mid ICA: 49 cm/s Distal ICA: 61 cm/s ECA: 112 cm/s Vertebral: 31 cm/s Left End Diastolic Velocities: Proximal CCA: 22 cm/s Distal CCA: 17 cm/s Proximal ICA: 21 cm/s Mid ICA: 22 cm/s Distal ICA: 28 cm/s ECA: 24 cm/s Vertebral: 10 cm/ss Abbreviations: CCA = Common Carotid Artery. ICA = Internal Carotid Artery. ECA =External Carotid Artery. Vert = Vertebral Artery. ICA/CCA ratio = maximalICA PSV divided by the maximal CCA PSV. IMPRESSION: 1.No evidence of 50% or greater stenosis in the right or left internalcarotid artery. 2.Antegrade flow in both vertebral arteries. Eyal Monique MD [facility] NEUROVASCULAR Final R esult documented in this encounter Visit Diagnoses Diagnosis Bilateral carotid bruits- Primary Bilateral carotid bruits documented in this encounter Care Teams Graphic Pre Press Trades Worker Relationship Specialty Start Date End Date Unknown, Unknown, PCP - General 09/11/21 documented as of this encounter Additional Source Comments The information contained in this document represents components of the legal health record. It is not the complete legal health record.[facility]
--- OUTSIDE RECORDS SUMMARY | 2025-05-26 09:51 | XMS_ITS | Data Portability ---
Author Organization [place] [facility] Address [address] [place] [address] Care Team Providers Care Mattress Weaver Name Role Phone MESHA FUNES Primary Care Provider [phone] Assessment Encounter Date Assessment Date Assessment LastModified by Organization Details LastModified Time 11/13/2024 11/13/2024 Dylan Orellana MD patient 1. Mr. Morton is a very pleasant patient with PMH of BPH. Patient is presenting with RT shoulder pain. Patient states having a PNS on the RT shoulder on the 2023 back in [place]. Patient will f/u for a 1 month for lead pull. Onset of Pain Approximate Date: (Month/Year) - Current Pain Level: 2/10 Worst pain level: 10/10 2. Pain Generators/ Etiology Shoulder sub-acromial impingement 3. Previously trialed/Failed Meds: (drug name followed by E- Effective if Not Effective only list drug name) Tylenol - NSAID s / steroids - Muscle relaxants - [...] agreed to proceed and verbalized understanding. The [facility] opioid risk pamphlet was/has been previously provided to the patient. - [place] PDMP/[place] was used in opioid decision making. [...] patient is maintained on opioids. 2. PT prescribe none -Encouraged pt to continue home exercises that were learned via previous physician direction. The patient has been trying these exercise for more than 6 weeks. -Recommend walking forward and backward in waist-high water to improve balance, and to the core muscles of abdomen, and to increase flexibility and boosts cardiovascular fitness. - DME: No DME ordered at this time. 3. Psychological recommendations: none 4. Labs - obtain none 5. Imaging - Obtain: no diagnostic studies at this time - Reviewed available imaging prior to pt arrival - No tests were reviewed with pt during this appointment 6. Interventions schedule: none T/C: - - - 7. Referrals none 8. Records requested none 9. Follow up visit Patient 1 f/u for lead pull w/ Dr. Seals. 10. Additional Discussion Iván Seals MD We will continue to evaluate the patient's complex medical condition, namely chronic pain and its associated medical conditions, and manage the medical care services that serve as the continuing focal point for all needed health care services and/or with medical care services that are part of ongoing care related to the patient's complex pain condition. - The pathophysiology of the patient s condition(s) was/were discussed. Conservative options were [...] RT shoulder on the 2023 back in [place]. Pt is present for a Rt shoulder PNS lead pull. Pt reports 100% relief. Onset of Pain Approximate Date: (Month/Year) -11/2023 Current Pain Level: 0/10 Worst pain level: 10/10 2. Pain Generators/ Etiology Shoulder sub-acromial impingement 3. Previously trialed/Failed Meds: (drug name followed by E- Effective if Not Effective only list drug name) Tylenol - NSAID s / steroids - Muscle relaxants - [...] agreed to proceed and verbalized understanding. The [facility] opioid risk pamphlet was/has been previously provided to the patient. - [place] was used in opioid decision making. [...] patient is maintained on opioids. 2. PT prescribe none -Encouraged pt to continue home exercises that were learned via previous physician direction. The patient has been trying these exercise for more than 6 weeks. -Recommend walking forward and backward in waist-high water to improve balance, and to the core muscles of abdomen, and to increase flexibility and boosts cardiovascular fitness. - DME: No DME ordered at this time. 3. Psychological recommendations: none 4. Labs - obtain none 5. Imaging - Obtain: no diagnostic studies at this time - Reviewed available imaging prior to pt arrival - No tests were reviewed with pt during this appointment 6. Interventions schedule: none T/C: - - - 7. Referrals none 8. Records requested none 9. Follow up visit PRN 10. Additional Discussion Iván Seals MD We will continue to evaluate the patient's complex medical condition, namely chronic pain and its associated medical conditions, and manage the medical care services that serve as the continuing focal point for all needed health care services and/or with medical care services that are part of ongoing care related to the patient's complex pain condition. - The pathophysiology of the patient s condition(s) was/were discussed. Conservative options were [...] By Organization Details Last Modified Time 11/13/2024 [id number] ASSESSMENT: Abdiaziz Daughertyleyla presents for the removal of a [employer] [...] management. [email or web address] Not available 11/13/2024 16:46:37 12/21/2024 [id number] ASSESSMENT: The patient has a history of [...] Updated DateTime 11/13/2024 167.64 cm 39.5 kg/m2 670196.13 g Graham Talat [facility] 11/13/2024 08:46:30 Date Recorded Body height Body mass index (BMI) Body weight Provider Name and Address Organization Details Last Updated DateTime 12/21/2024 167.64 cm 39.5 kg/m2 496509.13 g Murphy Conklin [facility] 12/21/2024 10:33:15 Social History Question Answer Notes LastModified by Organizat ion Details LastModified Time Tobacco Smoking Status Current Some Day Smoker Chad farmer, [facility] 11/13/2024 08:40:22 How Much Tobacco Do [...] Of Your Most Recent Tobacco Screening? 12/21/2024 [email or web address] Information not available 12/21/2024 How Much Tobacco Do You Smoke? No Information not available 11/13/2024 Has Tobacco Cessation Counseling Been Provided? Yes [email or web address] Information not available 11/13/2024 On What Date Was Tobacco Cessation Counseling Provided? 12/21/2024 [email or web address] Information not available 12/21/2024 Sex: Unknown Functional [...] SNOMED-CT Code Diagnosis ICD10 Code Diagnosis Note [id number] IVÁN SEALS MD [facility] [address] [address] [address] 11/13/2024 08:21:22 11/16/2024 10:24:58 Pain of right shoulder joint [id number] 5766698 M25.511 [id number] IVÁN SEALS MD [facility] [address] [address] [address] 12/21/2024 10:06:25 12/22/2024 11:01:14 Cervical radiculopathy 17385919 M54.12 Cervical spondylosis 387 759855 M47.812 Pain of ri ght shoulder joint 2322927064 9746432 M25.511 Spasm 68459910 M62.838 Health Concerns Section Related Observation LastModified by Organization Detai ls LastModified Time None Recorded Concern Status LastModified by Organization Details LastModified Time None Recorded Advance Directives Directive None Recorded Payers Insurance Date Sequence Insurance Name Policy Number Policy Bunch Covered Member ID Bunch Member ID Guarantor Name 12/18/2024 [place] Abdiaziz Morton [id number] Abdiaziz Morton 12/18/2024 1 [place] [employer] Abdiaziz Morton [id number] Abdiaziz Morton 12/18/2024 2 [place] [id number] Abdiaziz Morton [id number] Abdiaziz Morton Notes Date Note Type [...] a general surgeon locally. [place] [id number] [facility] [address], [place], [address], [facility] 11/13/2024 16:59:21 12/21/2024 text/html ShoulderReported bypatient.Pain level:right shoulder - 010 Abdiaziz Morton is a 69-year-old male presenting [...] of the stimulator device. IVÁ[place] [id number] [facility] [address], [place], [address], [facility] 12/21/2024 16:23:16
== END 2025-05-26 10:13 | disposition home or self-care (01) ==
LOC: HO.PMC 09:20
PROVIDERS: PCP Family Medicine; Visit Provider Internal Medicine
DX: M17.9 Osteoarthritis of knee, unspecified (principal); M67.911 Unspecified disorder of synovium and tendon, right shoulder; M67.912 Unspecified disorder of synovium and tendon, left shoulder
CPT/HCPCS: 99213

== ENCOUNTER → 2025-05-26 09:20 | Outpatient (BNVA) | payer MEDICARE, SELFPAY | PROVIDERS: PCP Family Medicine; Visit Provider Internal Medicine | DX: M67.911 Unspecified disorder of synovium and tendon, right shoulder (principal); M67.912 Unspecified disorder of synovium and tendon, left shoulder; M17.9 Osteoarthritis of knee, unspecified; M25.569 Pain in unspecified knee; Z79.899 Other long term (current) drug therapy | CPT/HCPCS: 99212 ==

== ENCOUNTER 2025-06-10 06:13 | Outpatient (REF) | payer MEDICARE, SELFPAY ==
--- NOTE | ~2025-06-10 | FL_ITS ---
EXAMINATION: FL GUIDANCE ONLY HISTORY: Pain in RIGHT knee - PRP RT knee COMPARISON: None available. TECHNIQUE: Fluoroscopy time: Less than 1 minute. Cumulative Dose: 0.182 mGy. DAP: 0.36150 mGym2 Images: 1. FINDINGS: A single fluoroscopic spot film of the right knee demonstrates a needle in place and contrast material in the joint space. FL/FL guidance in treatment room IMPRESSION: Fluoroscopy during procedure. Please see procedure report for additional information. Electronically signed by: Young Bloom MD 06/10/2025 01:50 PM EDT
--- OUTSIDE RECORDS SUMMARY | 2025-06-10 06:15 | XMS_ITS | Encounter Summary ---
Author Organization [facility] Address [address] [place] [address] Phone Care Team Providers Care Tax Services Intern Name Role Phone Unknown, Unknown Primary Care Provider Ana bloom Encounter Details Date Type Department Care Team (Late st Contact Info) Description 09/08/2021 Transcribe Orders Virtual Department [address] [place] [address] Eyal Monique MD [address] [place] [address] [place] [address] Bilateral carotid bruits (Primary Dx) Social History [...] in both vertebral arteries. Eyal Monique MD [facility] NEUROVASCULAR Final R esult documented in this encounter Visit Diagnoses Diagnosis Bilateral carotid bruits- Primary Bilateral carotid bruits documented in this encounter Care Teams Tax Services Intern Relationship Specialty Start Date End Date Unknown, Unknown, PCP - General 09/11/21 documented as of this encounter Additional Source Comments The information contained in this document represents components of the legal health record. It is not the complete legal health record.[facility]
== END 2025-06-10 06:14 | disposition home or self-care (01) ==
LOC: CF 06:13
PROVIDERS: Visit Provider Internal Medicine
DX: M17.11 Unilateral primary osteoarthritis, right knee (principal)
CPT/HCPCS: Q9967

== ENCOUNTER 2025-06-10 11:40 | Outpatient (AMB) | payer MEDICARE, SELFPAY ==
[2025-06-10 12:03] VITALS: BP 114/73; PULSE 56; RESP 18; O2SAT 96; BMI 38.7
--- NOTE | 2025-06-10 12:03 | MHC.OFFVIS ---
Vital Signs 06/10/25 12:03 Height 5 ft 6 in Weight 240 lb BMI 38.7 BP 114/73 Blood Pressure Location Lt brachial Position Sitting Respiration 18 Pulse 56 Pulse Source Pulse Oximeter Pulse Oximetry (%) 96 Oxygen Delivery Method Room Air Intake Visit Reasons: PRP right knee Area Loss Prevention Manager Required: No Allergies No Known Allergies Allergy (Verified 05/26/25 09:39) HPI HPI PRP right knee: Details: Patient presents for scheduled procedure. Denies any recent cough, cold, infection, fever or other significant changes in medical history since last office visit. [facility] Medical History (Updated 06/01/25 @ 10:49 by Constantine Jones MD) Morbid obesity Physical Exam Vital Signs: Last Vital Signs Pulse 56 06/10/25 12:03 Resp 18 06/10/25 12:03 BP 114/73 06/10/25 12:03 Pulse Ox 96 06/10/25 12:03 Oxygen Delivery Method Room Air 06/10/25 12:03 BMI result Body Mass Index 38.7 Office Procedures Platelet Rich Plasma Injection PRP Joint Injection After informed written consent was obtained, pre-procedure oxygen saturation, heart rate, and blood pressure were recorded. An 18 gauge butterfly needle was used to obtain 50 mL of whole blood from the right antecubital fossa. This was then mixed with 9 mL anticoagulant citrate dextrose solution. The 60 mL mixture was counter balanced to within 1 g and spun at 3500 rpm for 10 minutes. Platelet poor plasma was then drawn using a bench top press model. 6 mL of slightly leukocyte rich PRP was isolated in a 10 cc syringe. The platelet poor plasma syringe was then connected to a protein concentrating filter. A vaclock syringe was also attached to the filter. The PPP was then flushed back and forth through the protein concentrating filter and 4 mL of A2M protein concentrate was isolated. Primary Site: right knee (PRP and A2M concentrate) Prep: site was prepped using sterile technique Approach Used: medial parapatellar (with arthrogram) Procedure: The patient tolerated the procedure well XCELL Platelet Plasma - 0232T 60 mL All charges added?: Procedure code (CPT) selection complete Assessment & Plan Assessment & Plan (1) Knee osteoarthritis: Code(s): M17.9 - Osteoarthritis of knee, unspecified Category: Medical Plan Patient is status post right knee PRP/A2M injection. Patient tolerated procedure well and was discharged home in stable condition with discharge instructions. All questions were answered. We will follow-up via telephone or in clinic to assess response to therapy. A follow-up appointment was made during today's visit. Orders: Orders AMB Platelet Rich Plasma (PRP) Injection 06/10/25 M17.9 - Osteoarthritis of knee, unspecified Medications: New tramadol 50 mg PO DAILY PRN 20 tabs 0RF pain Coding Level of Care Code Procedure Only Diagnoses Knee osteoarthritis M17.9 CPT Codes XCELL Kit 60mL ([id number])
== END 2025-06-10 13:15 | disposition home or self-care (01) ==
LOC: HO.PMCPRC 11:40
PROVIDERS: PCP Family Medicine; Visit Provider Internal Medicine
DX: M17.9 Osteoarthritis of knee, unspecified (principal)
CPT/HCPCS: 0232T

== ENCOUNTER 2025-07-19 09:10 | Outpatient (AMB) | payer MEDICARE, SELFPAY ==
--- NOTE | 2025-07-19 09:19 | MHC.PC.OV ---
Vital Signs 07/19/25 09:32 Height 5 ft 6 in Weight 109.769 kg BMI 39.1 BP 104/70 Pulse 57 Pulse Source Pulse Oximeter Temp 97.2 F Temp Source Temporal Artery Scan Pulse Oximetry (%) 97 Oxygen Delivery Method Room Air Intake Visit Reasons: 4 MO F/UP - MARIN PT Processing Technologist Required: No Accompanied by: Spouse Allergies No Known Allergies Allergy (Verified 07/19/25 09:21) Medication List - Last Reconciled 07/19/25 by TRAMAINE Curry acetaminophen (Tylenol Extra Strength) 1,000 mg PO Q6H PRN fluticasone propionate 50 mcg/actuation intranasal meloxicam 15 mg PO DAILY tamsulosin 0.4 mg PO BEDTIME Tobacco use date assessed: 07/19/25 Fall risk assessment: No Falls in past year Last assessed Fall Risk: 07/19/25 Dental Screening Dental Screen Date: 07/19/25 Did you have a dental visit in the last 12 months?: Yes Did you have a dental problem in the last 6 months where you did not have access to dental care?: No Was dental information given to patient?: No HPI HPI Comments History of Present Illness Details 69-year-old male with history of BPH, GERD, osteoarthritis, venous insufficiency presenting to the office today for management of chronic conditions and to establish care. Here with his, Hetal. Osteoarthritis-well managed with meloxicam as needed. Following with pain management, 8.7 PRP injection BPH-with LUTS. On tamsulosin with good effect GERD-managed with diet Venous insufficiency-no significant anemia Obesity-BMI 39.1. He is s/p gastric bypass in 1999. Previously weighed 500 lb, now 240 lb. His goal is to weigh 225 lb. He is having difficulty exercising secondary to orthopedic concerns/pain Concerns: R radiculopathy, worse since cruise to [place]. Improving, but still painful in R hip. Also R knee. Did do a lot of walking on vacation. Has swelling in knee and ankle as well. Initially weakness in the R knee when standing. PRP helped. BLE and hand cramping- long standing. Health maintenance: Last colonoscopy 08/2019 with 10 year follow-up advised. Dr. Kidd [facility] ROS: General: No fevers, malaise, unintentional weight loss HEENT: No blurred vision, diplopia. No sore throat, nasal congestion, rhinorrhea, sinus pain, ear pain Cardiovascular: No chest pain, palpitations, or leg edema Respiratory: No shortness of breath, wheezing, cough GI: No abdominal pain, nausea, vomiting, diarrhea, constipation, melena, hematochezia : No dysuria, hematuria, increased urinary frequency, decreased urinary output MSK: No myalgia, back pain Neuro: No headaches, weakness, paresthesias Skin: No rashes or lesions EXAM: Constitutional - Awake and Alert, No apparent distress Eyes - PERRL Cardiovascular - S1S2, RRR, No edema Respiratory - Normal lung expansion, Normal respiratory effort, No respiratory distress, CTA bilaterally Extremities - no calf tenderness bilaterally, no swelling Skin - Warm/Dry Neurological - Alert & oriented x3 Psychological - Appropriate affect [facility] Medical History (Updated 07/19/25 @ 09:54 by TRAMAINE Curry) GERD (gastroesophageal reflux disease) Venous insufficiency BPH (benign prostatic hyperplasia) Morbid obesity Surgical History (Updated 07/19/25 @ 10:25 by TRAMAINE Curry) S/P gastric bypass History of colonoscopy (~08/28/19) Social History Housing: House Patient Tobacco Use Status: Former Tobacco user (Quite in 1994) Years Smoked: 15 e-Cigarette/Vaping Use: Never Used service: No Current occupational status: employed Cognitive needs: No Hearing needs: No Vision needs: Yes (Reading glasses) Questionnaire PHQ-9 Over the last 2 weeks, how often have you been bothered by any of the following problems? 1. Little interest or pleasure in doing things: not at all 2. Feeling down, depressed, or hopeless: not at all 3. Trouble falling or staying asleep, or sleeping too much: more than half the days 4. Feeling tired or having little energy: not at all 5. Poor appetite or overeating: not at all 6. Feeling bad about yourself - or that you are a failure or have let yourself or your family down: not at all 7. Trouble concentrating on things, such as reading the newspaper or watching television: not at all 8. Moving or speaking so slowly that other people could have noticed. Or the opposite - being so fidgety or restless that you have been moving around a lot more than usual: not at all 9. Thoughts that you would be better off or of hurting yourself in some way: not at all Total score: 2 Source: Developed by Drs. Young Kaur, Primo Alfonso and colleagues, with an educational cora from [employer] Thrive Questionnaire Date Thrive assessed: 07/19/25 I am a: Patient What is your living situation today?: I have a steady place to live Within the past 12 months, did the food you bought not last and you didn't have the money to get more?: Never true Within the past 12 months, did you worry whether your food would run out before you got money to buy more?: Never true Do you have trouble paying for medicines?: No Do you have trouble getting transportation to medical appointments?: No Do you have trouble paying your heating and electricity bill?: No Do you have trouble taking care of your child, family member or friend?: No Do you have trouble with day-to-day activities such as bathing, preparing meals, shopping, managing finances, etc.?: No Are you currently unemployed and looking for a job?: No Are you interested in more education?: No Please select the resources that you would like help with: None THRIVE Score: 0 EVERETTE-7 AMB Questionnaire EVERETTE-7 Date EVERETTE - 7 assessed: 07/19/25 Feeling nervous, anxious, or on edge: 0 = Not at all Not being able to stop or control worryin = Not at all Worrying too much about different things: 0 = Not at all Trouble relaxin = Not at all Being so restless that it is hard to sit still: 0 = Not at all Becoming easily annoyed or irritable: 0 = Not at all Feeling afraid as if something awful might happen: 0 = Not at all Total EVERETTE-7 score (0-4 normal; 5-9 mild; 10-14 moderate; 15-21 severe): 0 Source: Developed by Drs. Young Kaur, Primo Alfonso and colleagues, with an educational cora from [employer] Physical exam (Primary Care) Vital Signs: Last Vital Signs Temp 97.2 F 07/19/25 09:32 Pulse 57 07/19/25 09:32 BP 104/70 07/19/25 09:32 Pulse Ox 97 07/19/25 09:32 Oxygen Delivery Method Room Air 07/19/25 09:32 BMI result Body Mass Index 39.1 Tobacco/Smoking Status: Tobacco use Status Tobacco use date assessed 07/19/25 07/19/25 09:27 Patient Tobacco Use Status Former Tobacco user (Quite 07/19/25 09:27 in 1994) e-Cigarette/Vaping Use Never Used 07/19/25 09:27 PHQ-9: PHQ-9 Score PHQ-9: Total score 2 07/19/25 09:53 Thrive Assessment: Date of Thrive Assessment Date Thrive assessed 07/19/25 07/19/25 09:36 Coding Level of Care Code New Pt Level 4 (78394) Complex EM visit Add On G2211 Diagnoses Knee osteoarthritis M17.9 BPH (benign prostatic hyperplasia) N40.0 Venous insufficiency I87.2 GERD (gastroesophageal reflux disease) K21.9 Cramps, extremity R25.2 Assessment & Plan Assessment & Plan (1) Knee osteoarthritis: Code(s): M17.9 - Osteoarthritis of knee, unspecified Category: Medical Plan: Follow-up with Dr. Suzanne liriano. Continue meloxicam. Continue with weight loss efforts. (2) BPH (benign prostatic hyperplasia): Code(s): N40.0 - Benign prostatic hyperplasia without lower urinary tract symptoms Category: Medical Plan: BPH ordered. Continue tamsulosin-LUTS controlled (3) Venous insufficiency: Code(s): I87.2 - Venous insufficiency (chronic) (peripheral) Category: Medical Plan: Compression stockings and leg elevation as needed. (4) GERD (gastroesophageal reflux disease): Code(s): K21.9 - Gastro-esophageal reflux disease without esophagitis Category: Medical Plan: Controlled. Continue avoidance of triggering food items (5) Cramps, extremity: Code(s): R25.2 - Cramp and spasm Category: Medical Plan: Advised to increase water intake and decrease coffee intake. Will check electrolyte levels as well as vitamin levels. Recommend compression stockings, leg elevation. Can consider referral to vascular if no improvement Plan Follow-up in the office in 7 months. Labs to be completed following visit today as well as prior to next visit. Orders: Orders Liver Panel Today E66.01 - Morbid (severe) obesity due to excess calories, I87.2 - Venous insufficiency (chronic) (peripheral), M17.9 - Osteoarthritis of knee, unspecified, N40.0 - Benign prostatic hyperplasia without lower urinary tract symptoms Vitamin B12 Today I87.2 - Venous insufficiency (chronic) (peripheral), R25.2 - Cramp and spasm IRON PROFILE Today I87.2 - Venous insufficiency (chronic) (peripheral), R25.2 - Cramp and spasm Lipid Panel 7 Months I87.2 - Venous insufficiency (chronic) (peripheral), K21.9 - Gastro-esophageal reflux disease without esophagitis, N40.0 - Benign prostatic hyperplasia without lower urinary tract symptoms, R25.2 - Cramp and spasm, Z98.84 - Bariatric surgery status Complete Blood Count Auto Diff 7 Months I87.2 - Venous insufficiency (chronic) (peripheral), K21.9 - Gastro-esophageal reflux disease without esophagitis, N40.0 - Benign prostatic hyperplasia without lower urinary tract symptoms, R25.2 - Cramp and spasm, Z98.84 - Bariatric surgery status Basic Metabolic Panel Today E66.01 - Morbid (severe) obesity due to excess calories, I87.2 - Venous insufficiency (chronic) (peripheral), M17.9 - Osteoarthritis of knee, unspecified, N40.0 - Benign prostatic hyperplasia without lower urinary tract symptoms Lipid Panel Today E66.01 - Morbid (severe) obesity due to excess calories, I87.2 - Venous insufficiency (chronic) (peripheral), M17.9 - Osteoarthritis of knee, unspecified, N40.0 - Benign prostatic hyperplasia without lower urinary tract symptoms Hemoglobin A1c Today E66.01 - Morbid (severe) obesity due to excess calories, I87.2 - Venous insufficiency (chronic) (peripheral), M17.9 - Osteoarthritis of knee, unspecified, N40.0 - Benign prostatic hyperplasia without lower urinary tract symptoms Prostate Specific Antigen Today E66.01 - Morbid (severe) obesity due to excess calories, I87.2 - Venous insufficiency (chronic) (peripheral), M17.9 - Osteoarthritis of knee, unspecified, N40.0 - Benign prostatic hyperplasia without lower urinary tract symptoms TSH reflex Free T4 Today I87.2 - Venous insufficiency (chronic) (peripheral), R25.2 - Cramp and spasm Basic Metabolic Panel 7 Months I87.2 - Venous insufficiency (chronic) (peripheral), K21.9 - Gastro-esophageal reflux disease without esophagitis, N40.0 - Benign prostatic hyperplasia without lower urinary tract symptoms, R25.2 - Cramp and spasm, Z98.84 - Bariatric surgery status Medications: Discontinued celecoxib (Celebrex) Discontinued Reason: Doctor's Order 200 mg PO BID 60 caps 0RF
[2025-07-19 09:32] VITALS: BP 104/70; PULSE 57; TEMP 36.2; O2SAT 97; BMI 39.1
--- OUTSIDE RECORDS SUMMARY | 2025-07-19 10:48 | XMS_ITS | Encounter Summary ---
Author Organization [facility] Address [address] [facility] [address] [place] [phone] Phone Care Team Providers Care Grease Remover Name Role Phone Unknown, Unknown Primary Care Provider Ana bloom Encounter Details Date Type Department Care Team (Late st Contact Info) Description 09/08/2021 Transcribe Orders Virtual Department [address] [place] [address] Eyal Monique MD [address] [place] [address] [place] [address] Bilateral carotid bruits (Primary Dx) Social History [...] in both vertebral arteries. Eyal Monique MD [facility] NEUROVASCULAR Final R esult documented in this encounter Visit Diagnoses Diagnosis Bilateral carotid bruits- Primary Bilateral carotid bruits documented in this encounter Care Teams Grease Remover Relationship Specialty Start Date End Date Unknown, Unknown, PCP - General 09/11/21 documented as of this encounter Additional Source Comments The information contained in this document represents components of the legal health record. It is not the complete legal health record.[facility]
--- OUTSIDE RECORDS SUMMARY | 2025-07-19 10:49 | XMS_ITS | Clinical Summary ---
Author Organization [facility] Address [address] [place], [place] [id number] Phone Care Team Providers Care Stamping Die Maker Bench Name Role Phone Unknown, Unknown Primary Care Provider Ana bloom Social History Tobacco Use Types Packs/Day Years Used Date Smoking Tobacco: Never Assessed Education Answer Date Recorded Are you interested in more education? Not on bhanu e 03/02/2023 Are you concerned about learning? Not on file 03/02/2023 No 03/02/2023 No 03/02/2023 Digital Access Answer Date Recorded No 04/02/2023 No 04/02/2023 Reliable internet access at home? Not on file 04/02/2023 Device with a working camera? Not on file Sex and Gender Information Value Date Recorded Sex Assigned at Not on file Legal Sex Male 2:12 PM EDT Gender Identity Not on file Sexual Orientation Not on file Plan of Treatment Health Maintenance Due Date Last Done Comments Adult Td,Tdap Booster 1957 LIPID PANEL 1957 DEPRESSION SCREENING 1969 SMOKING Hx and SMOKELESS TOB ACCO SCREENING 1970 HEPATITIS C SCREENING 1975 COLOGUARD 2002 COLONOSCOPY 2002 COLORECTAL CANCER SCREENING 2002 FIT TEST 2002 FOBT 2002 SIGMOIDOSCOPY 2002 VIRTUAL COLONOSCOPY 2002 PNEUMOCOCCAL VACCINES (50+ y ears) (1 of 1 - PCV) 2007 ZOSTER VACCINES (1 of 2) 2007 COVID-19 VACCINE (2 - 2023-2 5 season) 2024 09/04/2021 RSV VACCINE (1 - 1-dose 75+ series) 2032 HEPATITIS A VACCINES Aged Out No long er eligible based on patient's age to complete this topic HIB VACCINES Aged Out No longer eligi ble based on patient's age to complete this topic MENINGOCOCCAL VACCINES (ACWY) Aged Out No longer eligible based on patient's age to complete this topic MENINGOCOCCAL VACCINES (B) Aged Out N o longer eligible based on patient's age to complete this topic Medical Devices Not on file Insurance HMO [facility] [place] [place] Address: [address] [address] Care Teams Stamping Die Maker Bench Relationship Specialty Start Date End Date Unknown, Unknown, PCP - General 09/11/21 Additional Source Comments The information contained in this document represents components of the legal health record. It is not the complete legal health record.[facility]
== END 2025-07-19 10:13 | disposition home or self-care (01) ==
LOC: HO.HMCHD 09:11
PROVIDERS: PCP Family Medicine; Visit Provider Physician Assistant
DX: M17.9 Osteoarthritis of knee, unspecified (principal); N40.0 Benign prostatic hyperplasia without lower urinary tract symptoms; I87.2 Venous insufficiency (chronic) (peripheral); K21.9 Gastro-esophageal reflux disease without esophagitis; R25.2 Cramp and spasm

== ENCOUNTER → 2025-07-19 09:10 | Outpatient (BNVA) | payer MEDICARE, SELFPAY | PROVIDERS: PCP Family Medicine; Visit Provider Physician Assistant | DX: Z76.89 Persons encountering health services in other specified circumstances (principal); M17.9 Osteoarthritis of knee, unspecified; N40.1 Benign prostatic hyperplasia with lower urinary tract symptoms; K21.9 Gastro-esophageal reflux disease without esophagitis; I87.2 Venous insufficiency (chronic) (peripheral); E66.9 Obesity, unspecified; Z68.39 Body mass index [BMI] 39.0-39.9, adult; R25.2 Cramp and spasm; Z79.899 Other long term (current) drug therapy; Z13.30 Encounter for screening examination for mental health and behavioral disorders, unspecified; Z13.39 Encounter for screening examination for other mental health and behavioral disorders | CPT/HCPCS: 96127; 99202 ==

== ENCOUNTER 2025-07-19 10:17 | Outpatient (REF) | payer MEDICARE, SELFPAY ==
[2025-07-19 10:57] LABS: Hemoglobin A1C 114.8769 umol/L; Total Hemoglobin (HGBA1C) 3605.8882 umol/L
[2025-07-19 12:07] LABS: Alanine Aminotransferase 18 U/L (0-40); Albumin Level 4.3 g/dL (3.5-5.0); Alkaline Phosphatase 64 U/L (39-117); Anion Gap 11 (12-20); Aspartate Amino Transferase 29 U/L (5-37); Blood Urea Nitrogen 13 mg/dL (9-16); Calcium 9.3 mg/dL (8.4-10.2); Carbon Dioxide 30 mmol/L (22-29); Chloride 105 mmol/L (96-108); Cholesterol 188 mg/dL (<200); Estimated Glomerular Filt Rate > 60; HDL Cholesterol 69 mg/dL (>40); Iron 65 mcg/dL (45-160); Percent Iron Saturation 18 % (15-50); Potassium 4.6 mmol/L (3.3-5.1); Sodium 141 mmol/L (135-145); Total Iron Binding Capacity 352 mcg/dL (228-428); Total Protein 7.0 g/dL (6.5-8.0); Triglycerides 125 mg/dL (<150); Unsaturated Iron Binding 287 ug/dL
[2025-07-19 12:08] LABS: Prostate Specific Antigen 0.68 ng/mL (<0.05-4.0); Vitamin B12 1064 pg/mL (200-900)
== END 2025-07-19 10:18 | disposition home or self-care (01) ==
LOC: HO.10HDL 10:17
PROVIDERS: Visit Provider Physician Assistant
DX: Z13.1 Encounter for screening for diabetes mellitus (principal); Z12.5 Encounter for screening for malignant neoplasm of prostate; I87.2 Venous insufficiency (chronic) (peripheral); M17.9 Osteoarthritis of knee, unspecified; R25.2 Cramp and spasm; N40.0 Benign prostatic hyperplasia without lower urinary tract symptoms; E66.01 Morbid (severe) obesity due to excess calories
CPT/HCPCS: 36415; 80048; 80061; 80076; 82607; 83036; 83540; 84153; 84443

== ENCOUNTER 2025-08-04 09:08 | Outpatient (AMB) | payer MEDICARE, SELFPAY ==
[2025-08-04 09:12] VITALS: BP 102/62; PULSE 68; RESP 16; O2SAT 98; BMI 38.1
--- NOTE | 2025-08-04 09:12 | A.OFFVIS_ITS ---
Vital Signs 08/04/25 09:12 Height 5 ft 6 in Weight 236 lb BMI 38.1 BP 102/62 Blood Pressure Location Lt brachial Position Sitting Respiration 16 Pulse 68 Pulse Source Pulse Oximeter Pulse Oximetry (%) 98 Oxygen Delivery Method Room Air Intake Visit Reasons: s/p right knee PRP Tissue Technician Required: No Allergies No Known Allergies Allergy (Verified 08/04/25 09:14) Medication List - Last Reconciled 08/04/25 by Marisol Santana LPN acetaminophen (Tylenol Extra Strength) 1,000 mg PO Q6H PRN fluticasone propionate 50 mcg/actuation intranasal meloxicam 15 mg PO DAILY tamsulosin 0.4 mg PO BEDTIME HPI HPI s/p right knee PRP: Details: History of Present Illness The patient is a 69-year-old male presenting with a follow-up after platelet- rich plasma injection for knee osteoarthritis on the right side. The patient reports a history of knee osteoarthritis, for which he received a platelet-rich plasma injection. He experienced significant pain during a recent trip, particularly when running through airports, but reports no current ankle pain and only stiffness in the knee upon waking. The patient also describes experiencing sciatica-type symptoms, with pain in the back of his thighs at night, which he attributes to his back. He has been visiting a chiropractor biweekly, which has provided some relief. The patient has not had an MRI of his back and has never undergone formal physical therapy for his lower back. He is open to starting physical therapy and has requested a referral to [facility]. The patient has a history of significant weight loss, having lost 35 pounds, and maintains an active lifestyle, including walking his dog and working on cars. He emphasizes the importance of mental discipline in maintaining his health. Pain Description - Onset: Pain intensified during a recent trip, especially when running through airports. - Quality: Pain in the back of thighs at night, stiffness in the knee upon waking. - Location: Knee, back of thighs, previously ankle. - Exacerbating factors: Physical activity such as running. - Relieving factors: Chiropractic visits provide some relief. Physical Exam - Appears afebrile. - Alert and oriented. - Mood and affect appropriate. - Follows and participates in conversation appropriately. - Respiratory effort is unlabored. - Able to transition from sit to stand unassisted. Pain Management - Affect: The patient maintains a positive outlook and emphasizes mental discipline. - Analgesia: Currently using meloxicam, which provides relief. - Activities of Daily Living: Engages in daily walking and car maintenance, avoiding sedentary lifestyle. - Aberrant Drug Related Behaviors: None reported. [facility] Medical History (Updated 08/04/25 @ 09:44 by Constantine Jones MD) GERD (gastroesophageal reflux disease) Venous insufficiency BPH (benign prostatic hyperplasia) Morbid obesity Surgical History (Updated 07/19/25 @ 10:25 by TRAMAINE Curry) S/P gastric bypass History of colonoscopy (~08/28/19) Social History Housing: House Patient Tobacco Use Status: Former Tobacco user (Quite in 1994) Years Smoked: 15 e-Cigarette/Vaping Use: Never Used service: No Current occupational status: employed Cognitive needs: No Hearing needs: No Vision needs: Yes (Reading glasses) Physical Exam Vital Signs: Last Vital Signs Pulse 68 08/04/25 09:12 Resp 16 08/04/25 09:12 BP 102/62 08/04/25 09:12 Pulse Ox 98 08/04/25 09:12 Oxygen Delivery Method Room Air 08/04/25 09:12 BMI result Body Mass Index 38.1 Assessment & Plan Assessment & Plan (1) Lumbar radicular pain: Code(s): M54.16 - Radiculopathy, lumbar region Category: Medical (2) Knee osteoarthritis: Code(s): M17.9 - Osteoarthritis of knee, unspecified Category: Medical (3) Chronic shoulder pain: Code(s): M25.519 - Pain in unspecified shoulder; G89.29 - Other chronic pain Category: Medical Plan Plan Patient was informed and verbally consented to the use of an ambient scribe for clinic note documentation during this visit. 1. Knee Osteoarthritis - Continue with meloxicam prn for pain management. - Referral to physical therapy at [facility]. 2. Sciatica Type Symptoms - Initiate physical therapy to learn exercises for HEP. - Consider MRI if symptoms persist after a couple of months. 3. Back Pain - Continue chiropractic visits for symptomatic relief. - Monitor symptoms and consider further imaging if necessary. 4. Ankle Pain - Currently resolved, monitor for recurrence. Discussion Notes During the visit, we discussed the management of knee osteoarthritis with continued use of meloxicam and referral to physical therapy at [facility]. For sciatica-type symptoms, I recommended initiating physical therapy and considering an MRI if symptoms persist. We also talked about the importance of maintaining an active lifestyle and the role of mental discipline in health management. Patient Instructions - Continue taking meloxicam as needed for pain relief. - Schedule and attend physical therapy sessions at [facility]. - Maintain an active lifestyle, including daily walking and avoiding prolonged sitting. - Monitor symptoms and report any significant changes or worsening of pain. Orders: Orders PT Evaluation and Treatment 08/04/25 M54.16 - Radiculopathy, lumbar region Medications: New meloxicam 15 mg PO DAILY 60 tabs 3RF Coding Level of Care Code Est Pt Level 4 (41927) Diagnoses Lumbar radicular pain M54.16 Knee osteoarthritis M17.9 Chronic shoulder pain M25.519; G89.29
--- OUTSIDE RECORDS SUMMARY | 2025-08-04 09:53 | XMS_ITS | Clinical Summary ---
Author Organization [facility] Address [address] [place], [place] [id number] Phone Care Team Providers Care Wellness Director Name Role Phone Unknown, Unknown Primary Care [...] HMO O O O O O O Care Teams Wellness Director Relationship Specialty Start Date End Date Unknown, Unknown, PCP - General 09/11/21 Additional Source Comments The information contained in this document represents components of the legal health record. It is not the complete legal health record.[facility]
--- OUTSIDE RECORDS SUMMARY | 2025-08-04 09:53 | XMS_ITS | Encounter Summary ---
Author Organization [facility] Address [address] [facility] [address] [place] [phone] Phone Care Team Providers Care Traffic Analysis Technician Name Role Phone Unknown, Unknown Primary Care Provider Ana bloom Encounter Details Date Type Department Care Team (Late st Contact Info) Description 09/08/2021 Transcribe Orders Virtual Department [address] [place] [address] Eyal Monique MD [address] [place] [address] [place] [address] Bilateral carotid bruits (Primary Dx) Social History [...] in both vertebral arteries. Eyal Monique MD [facility] NEUROVASCULAR Final R esult documented in this encounter Visit Diagnoses Diagnosis Bilateral carotid bruits- Primary Bilateral carotid bruits documented in this encounter Care Teams Traffic Analysis Technician Relationship Specialty Start Date End Date Unknown, Unknown, PCP - General 09/11/21 documented as of this encounter Additional Source Comments The information contained in this document represents components of the legal health record. It is not the complete legal health record.[facility]
== END 2025-08-04 09:46 | disposition home or self-care (01) ==
LOC: HO.PMC 09:09
PROVIDERS: PCP Family Medicine; Visit Provider Internal Medicine
DX: G89.29 Other chronic pain (principal); M54.16 Radiculopathy, lumbar region; M17.11 Unilateral primary osteoarthritis, right knee; M25.519 Pain in unspecified shoulder
CPT/HCPCS: 99214

== ENCOUNTER → 2025-08-04 09:08 | Outpatient (BNVA) | payer MEDICARE, SELFPAY | PROVIDERS: PCP Family Medicine; Visit Provider Internal Medicine | DX: M54.16 Radiculopathy, lumbar region (principal); M17.0 Bilateral primary osteoarthritis of knee; M25.512 Pain in left shoulder; M25.511 Pain in right shoulder; G89.29 Other chronic pain | CPT/HCPCS: 99212 ==

== ENCOUNTER 2025-10-25 06:48 | Outpatient (REF) | payer MEDICARE, SELFPAY ==
--- OUTSIDE RECORDS SUMMARY | 2025-10-25 06:54 | XMS_ITS | Encounter Summary ---
Author Organization [facility] Address [address] [facility] [address] [place] [phone] Phone Care Team Providers Care Production Controller Name Role Phone Unknown, Unknown Primary Care Provider Ana bloom Encounter Details Date Type Department Care Team (Late st Contact Info) Description 09/08/2021 Transcribe Orders Virtual Department [address] [place] [address] Eyal Monique MD [address] [place] [address] [place] [address] Bilateral carotid bruits (Primary Dx) Social History [...] in both vertebral arteries. Eyal Monique MD [facility] Final R esult documented in this encounter Visit Diagnoses Diagnosis Bilateral carotid bruits- Primary Bilateral carotid bruits documented in this encounter Care Teams Production Controller Relationship Specialty Start Date End Date Unknown, Unknown, PCP - General 09/11/21 documented as of this encounter Additional Source Comments The information contained in this document represents components of the legal health record. It is not the complete legal health record.[facility]
--- OUTSIDE RECORDS SUMMARY | 2025-10-25 06:54 | XMS_ITS | Clinical Summary ---
Author Organization [facility] Address [address] [place], [place] [id number] Phone Care Team Providers Care Furnace Operator And Tender Name Role Phone Unknown, Unknown Primary Care [...] DEPRESSION SCREENING 1969 SMOKING Hx and SMOKELESS TOBACCO SCREENING 1970 HEPATITIS C SCREENING 1975 COLOGUARD 2002 COLONOSCOPY 2002 COLORECTAL CANCER SCREENING 2002 FIT TEST 2002 FOBT 2002 SIGMOIDOSCOPY 2002 VIRTUAL COLONOSCOPY 2002 PNEUMOCOCCAL VACCINES (50+ years) (1 of 1 - PCV) 2007 ZOSTER VACCINES (1 of 2) 2007 INFLUENZA VACCINE (#1) 2025 , 08/29/2021, 07/18/2020 COVID-19 VACCINE (2 - 2024-2 6 season) 2025 09/04/2021 RSV VACCINE (1 - 1-dose 75+ [...] topic Medical Devices Not on file Insurance O [address] [place], [place] [id number] [place], [place] [id number] O O O Member Subscriber Plan / Payer (Ef fective 2021-Present) Name:Abdiaziz Morton Relation to Subscriber:Self Name:Abdiaziz Morton Payer ID:Not on file Type:O Address: [place] [phone] Care Teams Furnace Operator And Tender Relationship Specialty Start Date End Date Unknown, Unknown, PCP - General 09/11/21 Additional Source Comments The information contained in this document represents components of the legal health record. It is not the complete legal health record.[facility]
[2025-10-25 07:04] LABS: MANUAL DIFF FLAG NO
[2025-10-25 08:02] LABS: INTERNATIONAL NORM RATIO 0.9 (0.9-1.1); Prothrombin Time 10.8 SEC (11.2-13.5)
[2025-10-25 08:05] LABS: Hematocrit 43.2 % (42.0-52.0); Hemoglobin 13.8 g/dl (14.0-18.0); Imm Gran Abs Auto 0.01 X10*3/uL (0.00-0.03); Imm Gran Pct Auto 0.2 % (0.0-0.4); Lymphocytes Absolute Auto 1.2 X10*3/uL (1.2-4.9); Mean Corpuscular HGB Conc 31.9 g/dl (31.0-36.0); Mean Corpuscular Hemoglobin 30.4 pg (27.0-33.0); Mean Corpuscular Volume 95.2 fL (80.0-98.0); NRBC Abs Auto 0.000 X10*3/uL (0.0-0.012); NRBC Pct Auto 0.0 /100WBC (0.0-0.2); Platelet Count 217 X10*3/uL (160-400); Red Blood Count 4.54 X10*6/uL (4.60-5.80); White Blood Count 5.2 X10*3/uL (4.8-10.8)
[2025-10-25 08:35] LABS: Anion Gap 12 (12-20); Blood Urea Nitrogen 19 mg/dL (9-16); Calcium 9.2 mg/dL (8.4-10.2); Carbon Dioxide 27 mmol/L (22-29); Chloride 105 mmol/L (96-108); Estimated Glomerular Filt Rate > 60; Potassium 4.4 mmol/L (3.3-5.1); Sodium 140 mmol/L (135-145)
== END 2025-10-25 06:49 | disposition home or self-care (01) ==
LOC: HO.LAB 06:48
DX: R79.1 Abnormal coagulation profile (principal)
CPT/HCPCS: 36415; 80048; 85025; 85610